=== PATIENT | male | born 1980 | race Hispanic/Latino ===

== ENCOUNTER 2019-05-25 15:22 | Emergency (ER) | payer BC ==
[2019-05-25 16:54] LABS: #Eosinphils 0.1 thou/uL (0.0-0.7); #Lymphocytes 1.2 thou/uL (1.20-3.40); #Monocytes 0.7 thou/uL (0.11-0.59); #Neutrophils 6.2 thou/uL (1.40-6.50); %Basophils 0.6 % (0.0-1.0); %Eosinophils 0.7 % (0.0-10.0); %Lymphocytes 14.3 % (21.0-51.0); %Monocytes 8.1 % (0.0-10.0); %Neutrophils 76.3 % (42.0-75.0); Hemoglobin 15.2 g/dL (14.0-18.0); Mean Corpuscular HGB CONC 34.3 g/dL (32.0-36.0); Mean Corpuscular Hemoglobin 33.3 pg (27.0-31.0); Mean Platelet Volume 6.8 fL (7.4-10.4); Platelet Count 228 thou/uL (130-400); RBC Distribution Width 10.9 % (11.5-14.5); Red Blood Cell (RBC) Count 4.58 mill/uL (4.70-6.10); White Blood Cell (WBC) Count 8.1 thou/uL (4.8-10.8)
[2019-05-25 17:16] LABS: ALT (SGPT) 59 U/L (8-55); AST (SGOT) 29 U/L (5-34); Albumin 4.5 g/dL (3.5-5.0); Alkaline Phosphatase 101 U/L (40-150); Anion Gap 12 mmol/L (10-20); BUN (Urea Nitrogen) 19 mg/dL (8.9-20.6); Bilirubin, Total 0.6 mg/dL (0.2-1.2); CK (CPK) 110 U/L (30-200); Calc. Creatinine Clearance 0 mL/min (70-130); Calcium 10.7 mg/dL (7.8-10.44); Carbon Dioxide 27 mmol/L (22-29); Chloride 101 mmol/L (98-107); Estimated GFR-MDRD Greater than 90; Globulin 3.3 g/dL (2.4-3.5); Glucose 91 mg/dL (70-105); Protein, Total 7.8 g/dL (6.0-8.3); Sodium 136 mmol/L (136-145)
[2019-05-25] MEDS ORDERED: Acetaminophen 500 MG TAB ONE (17:21)
== END 2019-05-25 18:02 | disposition home or self-care (01) ==
LOC: ERS 15:22
DX: R53.1 Weakness (principal); E11.9 Type 2 diabetes mellitus without complications; E78.5 Hyperlipidemia, unspecified; E78.00 Pure hypercholesterolemia, unspecified; I10 Essential (primary) hypertension; Z79.899 Other long term (current) drug therapy; Z79.84 Long term (current) use of oral hypoglycemic drugs
CPT/HCPCS: 80053; 82550; 85025; 87804; 96360

== ENCOUNTER 2019-06-15 01:05 | Emergency (ER) | payer BC ==
[2019-06-15 01:40] LABS: Bilirubin Negative (Negative); Blood, Urine 2+ (Negative); Clarity Clear (Clear); Glucose, Urine (Dipstick) Normal (Negative); Leukocyte Negative Leu/uL (Negative); Nitrite Negative (Negative); Protein, Urine (Dipstick) Negative (Neg-Trace); Squamous Epithelial None Seen HPF (0-3); Urobilinogen Normal mg/dL (Less than 2); WBC/HPF 0-3 HPF (0-3)
[2019-06-15 01:41] LABS: Bacteria/HPF 1+ HPF (None Seen)
[2019-06-15 02:18] LABS: #Basophils 0.1 thou/uL (0.0-0.2); #Eosinphils 0.1 thou/uL (0.0-0.7); #Monocytes 0.8 thou/uL (0.11-0.59); #Neutrophils 6.2 thou/uL (1.40-6.50); %Basophils 0.7 % (0.0-1.0); %Eosinophils 1.3 % (0.0-10.0); %Lymphocytes 29.6 % (21.0-51.0); %Monocytes 7.5 % (0.0-10.0); %Neutrophils 60.9 % (42.0-75.0); Hemoglobin 13.1 g/dL (14.0-18.0); Mean Corpuscular HGB CONC 34.5 g/dL (32.0-36.0); Mean Corpuscular Hemoglobin 32.9 pg (27.0-31.0); Mean Corpuscular Volume 95.4 fL (78.0-98.0); Mean Platelet Volume 6.7 fL (7.4-10.4); Platelet Count 250 thou/uL (130-400); RBC Distribution Width 10.9 % (11.5-14.5); Red Blood Cell (RBC) Count 3.99 mill/uL (4.70-6.10); White Blood Cell (WBC) Count 10.1 thou/uL (4.8-10.8)
[2019-06-15 02:33] LABS: ALT (SGPT) 53 U/L (8-55); AST (SGOT) 42 U/L (5-34); Albumin 4.1 g/dL (3.5-5.0); Alkaline Phosphatase 77 U/L (40-110); Anion Gap 13 mmol/L (10-20); BUN (Urea Nitrogen) 14 mg/dL (8.9-20.6); Bilirubin, Total 0.4 mg/dL (0.2-1.2); Calc. Creatinine Clearance 0 mL/min (70-130); Calcium 9.5 mg/dL (7.8-10.44); Carbon Dioxide 23 mmol/L (22-29); Chloride 104 mmol/L (98-107); Estimated GFR-MDRD Greater than 90; Globulin 3.5 g/dL (2.4-3.5); Glucose 88 mg/dL (70-105); Potassium 4.1 mmol/L (3.5-5.1); Protein, Total 7.6 g/dL (6.0-8.3); Sodium 136 mmol/L (136-145)
[2019-06-15] MEDS ORDERED: Ondansetron PF 4 MG/2 ML Vial ONE (02:38)
[2019-06-15] MEDS ORDERED: Fentanyl 100 MCG/2 ML VIAL ONE (02:38)
[2019-06-15 03:22] LABS: CK (CPK) 106 U/L (30-200)
--- NOTE | 2019-06-15 08:00 | CT ---
PRELIMINARY REPORT/[facility]/AFTER HOURS PROCEDURE PROCEDURE INFORMATION: Exam: CT Abdomen And Pelvis Without Contrast Exam date and time: 06/15/2019 2:20 AM Clinical history: 38 years old, male; Patient HX: 38 year old male presents to ED C/O blood in urine since 9pm tonight. 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 Hatch at [facility]. Reports surgery is scheduled for July 10. Patient denies fever, abdominal pain, n/v, urinary com plaints TECHNIQUE: Imaging protocol: Computed tomography of the abdomen and pelvis without contrast. COMPARISON: No relevant prior studies available. FINDINGS: Liver: No solid mass. Gallbladder and bile ducts: Gallbladder has been removed. Pancreas: No acute pathology. No ductal dilation. Spleen: No solid mass. No splenomegaly. Adrenals: No mass. Kidneys and ureters: Solid appearing, exophytic 3.7 x 3.3 x 4.0 cm left lower pole renal mass consist ent with known neoplasm. There are multiple, bilateral nonobstructing renal stones, largest in the left lower pole measuring 2 cm. Multifocal bilateral renal cortical scarring. 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 Stomach and bowel: No obstruction. No mucosal thickening. Appendix: No evidence of appendicitis. Intraperitoneal space: No free air. Vasculature: No abdominal aortic aneurysm. Lymph nodes: No enlarged lymph nodes. Bladder: Unremarkable as visualized. Reproductive: Unremarkable as visualized. Bones/joints: Chronic degenerative spinal changes without acute fracture or dislocation. Soft tissues: Unremarkable. IMPRESSION: Solid appearing, exophytic 3.7 x 3.3 x 4.0 cm left lower pole renal mass consistent with known neopla sm. Bilateral nonobstructing renal stones, largest in the left lower pole measuring 2 cm. 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 Thank you for allowing us to participate in the care of your patient. Dictated and Authenticated by: Alysia Millan MD 06/15/2019 2:57 AM Central Time ([place] & [place]) CT ABDOMEN AND PELVIS WITHOUT CONTRAST PERFORMED ON AN EMERGENCY BASIS 06/15/2019 0221 HOURS HISTORY: Hematuria. FINDINGS: I agree with the preliminary report by Dr. Millan from [facility]. Bilateral renal calculi are similar in appearance to the previous study. Mild distention of the left renal collecting system is stable. No ureteral calcifications are evident. Solid mass at the inferior pole left kidney is unchanged in appearance. Subtle curvilinear density along the posterior aspect of the urinary bladder may represent a ureterocele. CODE QA Transcribed Date/Time: 06/15/2019 9:25 AM
== END 2019-06-15 03:35 | disposition home or self-care (01) ==
LOC: ERS 01:05
DX: R31.9 Hematuria, unspecified (principal); E11.9 Type 2 diabetes mellitus without complications; E78.5 Hyperlipidemia, unspecified; E78.00 Pure hypercholesterolemia, unspecified; I10 Essential (primary) hypertension; Z79.84 Long term (current) use of oral hypoglycemic drugs; Z79.899 Other long term (current) drug therapy
CPT/HCPCS: 36415; 74176; 80053; 81003; 81015; 82550; 85025; 96374; 96375; J2405; J3010

== ENCOUNTER 2019-07-19 21:41 | Emergency (ER) | payer BC ==
[2019-07-19] MEDS ORDERED: Morphine 4 MG/ML VIAL ONE ×2 (22:06→23:03)
[2019-07-19] MEDS ORDERED: Ketorolac Tromethamine 30 MG/ML VIAL ONE (22:07)
[2019-07-19] MEDS ORDERED: Ondansetron PF 4 MG/2 ML Vial ONE (22:07)
--- NOTE | 2019-07-19 22:18 | RAD ---
PORTABLE CHEST ONE VIEW: 07/19/19 at 10:07 p.m. HISTORY: Chest pain. FINDINGS: The heart size is normal. The lungs are expanded without focal areas of consolidation, pneumothorace s or pleural effusions. IMPRESSION: No acute process. POS: [facility]
[2019-07-19 22:20] LABS: #Basophils 0.1 thou/uL (0.0-0.2); #Eosinphils 0.1 thou/uL (0.0-0.7); #Lymphocytes 2.6 thou/uL (1.20-3.40); #Monocytes 0.5 thou/uL (0.11-0.59); #Neutrophils 4.6 thou/uL (1.40-6.50); %Basophils 0.8 % (0.0-1.0); %Eosinophils 1.7 % (0.0-10.0); %Lymphocytes 32.5 % (21.0-51.0); %Monocytes 6.7 % (0.0-10.0); %Neutrophils 58.3 % (42.0-75.0); Hemoglobin 13.9 g/dL (14.0-18.0); Mean Corpuscular HGB CONC 34.9 g/dL (32.0-36.0); Mean Corpuscular Hemoglobin 32.3 pg (27.0-31.0); Mean Corpuscular Volume 92.7 fL (78.0-98.0); Mean Platelet Volume 6.5 fL (7.4-10.4); Platelet Count 276 thou/uL (130-400); RBC Distribution Width 11.2 % (11.5-14.5); Red Blood Cell (RBC) Count 4.31 mill/uL (4.70-6.10); White Blood Cell (WBC) Count 7.9 thou/uL (4.8-10.8)
--- NOTE | 2019-07-19 22:38 | CT ---
CT ABDOMEN AND PELVIS WITHOUT CONTRAST: 07/19/19 HISTORY: Abdominal pain. COMPARISON: 06/15/19. FINDINGS: Absence of oral and IV contrast study reduces the sensitivity of the exam, particularly for the evalu ation of solid organs and bowel. The lungs bases are clear. No free air or free fluid is seen in the abdomen or pelvis. The patient is post cholecystectomy. A normal appearing appendix is present. There is scarring in the kidneys on both sides. Bilateral renal calculi again seen with stable mild d istention of the left renal collecting system. No calculi is seen in the ureters or the urinary bladd er. Probable ureter is seen in the posterior aspect of the urinary bladder is again noted. A dilated distal ureter is stable. The solid appearing exophytic mass arising from the lower pole of the left kidney is stable. There are degenerative changes in the spine. IMPRESSION: Stable exam. POS: [facility]
[2019-07-19 22:41] LABS: ALT (SGPT) 40 U/L (8-55); AST (SGOT) 26 U/L (5-34); Albumin 4.3 g/dL (3.5-5.0); Alkaline Phosphatase 90 U/L (40-110); Anion Gap 11 mmol/L (10-20); BUN (Urea Nitrogen) 14 mg/dL (8.9-20.6); Bilirubin, Total 0.3 mg/dL (0.2-1.2); Calc. Creatinine Clearance 0 mL/min (70-130); Calcium 9.4 mg/dL (7.8-10.44); Carbon Dioxide 28 mmol/L (22-29); Chloride 104 mmol/L (98-107); Estimated GFR-MDRD Greater than 90; Globulin 2.9 g/dL (2.4-3.5); Glucose 99 mg/dL (70-105); Potassium 3.8 mmol/L (3.5-5.1); Protein, Total 7.2 g/dL (6.0-8.3); Sodium 139 mmol/L (136-145)
[2019-07-19 23:36] LABS: Bacteria/HPF None Seen HPF (None Seen); Bilirubin Negative (Negative); Blood, Urine 2+ (Negative); Clarity Clear (Clear); Glucose, Urine (Dipstick) Normal (Negative); Leukocyte 75 Leu/uL (Negative); Nitrite Negative (Negative); Protein, Urine (Dipstick) Negative (Neg-Trace); RBC/HPF 21-50 HPF (0-3); Squamous Epithelial None Seen HPF (0-3); Urobilinogen Normal mg/dL (Less than 2)
== END 2019-07-20 00:20 | disposition home or self-care (01) ==
LOC: ERS 21:41
DX: N12 Tubulo-interstitial nephritis, not specified as acute or chronic (principal); R10.9 Unspecified abdominal pain; G89.29 Other chronic pain; R11.0 Nausea; E11.9 Type 2 diabetes mellitus without complications; I10 Essential (primary) hypertension; Z79.84 Long term (current) use of oral hypoglycemic drugs; Z79.1 Long term (current) use of non-steroidal anti-inflammatories (NSAID); Z79.899 Other long term (current) drug therapy
CPT/HCPCS: 71045; 74176; 80053; 81003; 81015; 84484; 85025; 85379; 87086; 93005; 96361; 96374; 96375; 96376; J1885; J2270; J2405

== ENCOUNTER 2019-09-09 22:25 | Emergency (ER) | payer BC ==
[~2019-09-09 22:25] MED LIST: Iopamidol-370 76% 500 ML 1 ML ONE
[2019-09-09] MEDS ORDERED: Morphine 4 MG/ML VIAL ONE (23:11)
[2019-09-09 23:18] LABS: #Eosinphils 0.4 thou/uL (0.0-0.7); #Lymphocytes 2.7 thou/uL (1.20-3.40); #Monocytes 0.8 thou/uL (0.11-0.59); #Neutrophils 2.9 thou/uL (1.40-6.50); %Basophils 0.7 % (0.0-1.0); %Eosinophils 5.2 % (0.0-10.0); %Lymphocytes 39.8 % (21.0-51.0); %Monocytes 11.3 % (0.0-10.0); Hemoglobin 13.8 g/dL (14.0-18.0); Mean Corpuscular HGB CONC 34.6 g/dL (32.0-36.0); Mean Corpuscular Hemoglobin 31.6 pg (27.0-31.0); Mean Corpuscular Volume 91.1 fL (78.0-98.0); Mean Platelet Volume 6.6 fL (7.4-10.4); Platelet Count 272 thou/uL (130-400); RBC Distribution Width 11.5 % (11.5-14.5); Red Blood Cell (RBC) Count 4.36 mill/uL (4.70-6.10); White Blood Cell (WBC) Count 6.7 thou/uL (4.8-10.8)
[2019-09-09] MEDS ORDERED: Ondansetron PF 4 MG/2 ML Vial ONE (23:31)
[2019-09-09 23:42] LABS: ALT (SGPT) 58 U/L (8-55); AST (SGOT) 27 U/L (5-34); Albumin 4.1 g/dL (3.5-5.0); Alkaline Phosphatase 119 U/L (40-110); Anion Gap 13 mmol/L (10-20); BUN (Urea Nitrogen) 15 mg/dL (8.9-20.6); Bilirubin, Total 0.4 mg/dL (0.2-1.2); Calc. Creatinine Clearance 0 mL/min (70-130); Calcium 9.4 mg/dL (7.8-10.44); Carbon Dioxide 25 mmol/L (22-29); Chloride 104 mmol/L (98-107); Estimated GFR-MDRD Greater than 90; Globulin 3.3 g/dL (2.4-3.5); Glucose 190 mg/dL (70-105); Lipase 40 U/L (8-78); Potassium 4.2 mmol/L (3.5-5.1); Protein, Total 7.4 g/dL (6.0-8.3); Sodium 138 mmol/L (136-145)
--- NOTE | 2019-09-10 08:22 | CT ---
CT ABDOMEN AND PELVIS WITH IV CONTRAST: Date: 09/09/2019 HISTORY: Left flank pain after mechanical fall this morning. Patient states also fell on right side while [place]. Acute worsening left flank pain. COMPARISON: Nonenhanced CT abdomen and pelvis on 07/19/2019. FINDINGS: The lung bases are clear. No pleural effusion or pneumothorax is seen at either lung base. Post cholecystectomy changes are noted. The liver, spleen, pancreas, bilateral adrenal glands, abdominal aorta, and urinary bladder demonstra te a normal CT appearance. There have been interval postsurgical changes involving the left kidney, and the previously noted inc reased density mass inferior pole left kidney is no longer visualized, which may be related to interv al postsurgical changes. There is mild stranding seen in the region of the postsurgical changes and i nvolving the subcutaneous soft tissues with small defect within the abdominal oblique musculature rel ated to postsurgical changes. No hemorrhage or fluid collection is seen in this region. There is a stable area of scarring in the superior pole left kidney with mild distention of the left renal collecting system, which is an overall stable finding to mildly improve from the prior exam. There are cortically based calcifications and scarring involving the right kidney. No hydronephrosis is present on the right. 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 Right ureter is not d ilated and no ureteral calculi are seen bilaterally. The appendix is visualized and normal in caliber. There are ill-defined rounded areas of mild increased density in the subcutaneous adipose soft tissue s of the abdomen bilaterally, which may be secondary to areas of injection. Clinical correlation is r ecommended. There is a linear area of increased density seen in the subcutaneous soft tissues at the level of the left iliac crest, which may also be site of prior postsurgical change. No free fluid, fluid collection, or lymphadenopathy seen in the abdomen or pelvis. Degenerative changes are seen in the visualized lower thoracic spine, as well as the lower lumbar spi ne. IMPRESSION: 1. Postsurgical changes involving the left kidney related to surgical excision of the previously not ed increased density inferior pole left renal mass. The previously seen calcifications in the inferio r pole of the left kidney are also no longer visualized. 2. Stable mild hydronephrosis left kidney, similar to prior study, with evidence of a duplicated lef t renal collecting system and stable dilatation of the distal upper pole moiety right ureter. 3. Scarring involving the kidneys bilaterally, greater on the left. Cortically based calcifications are seen involving the right kidney. 4. There is inflammatory stranding in the region of postsurgical change involving the left kidney, b ut there is no fluid collection or findings to suggest hemorrhage. 5. Post cholecystectomy changes. 6. Rounded areas of increased density in the adipose tissues anterior abdomen which may be related t o sites of injection. Clinical correlation is suggested. 7. No acute findings in the abdomen or pelvis. POS: [facility]
== END 2019-09-10 00:59 | disposition home or self-care (01) ==
LOC: ERS 22:25
DX: R10.9 Unspecified abdominal pain (principal); E11.9 Type 2 diabetes mellitus without complications; E78.5 Hyperlipidemia, unspecified; E78.00 Pure hypercholesterolemia, unspecified; I10 Essential (primary) hypertension; Z79.84 Long term (current) use of oral hypoglycemic drugs; Z79.899 Other long term (current) drug therapy; W18.30XA Fall on same level, unspecified, initial encounter
CPT/HCPCS: 74177; 80053; 83690; 85025; 96374; 96375; J2270; J2405; Q9967

== ENCOUNTER 2019-11-12 09:56 | Emergency (ER) | payer BC ==
[2019-11-12 10:34] LABS: #Eosinphils 0.1 thou/uL (0.0-0.7); #Lymphocytes 2.3 thou/uL (1.20-3.40); #Monocytes 0.6 thou/uL (0.11-0.59); #Neutrophils 2.2 thou/uL (1.40-6.50); %Basophils 0.7 % (0.0-1.0); %Eosinophils 2.7 % (0.0-10.0); %Lymphocytes 43.7 % (21.0-51.0); Hemoglobin 14.7 g/dL (14.0-18.0); Mean Corpuscular Hemoglobin 32.5 pg (27.0-31.0); Mean Corpuscular Volume 92.9 fL (78.0-98.0); Mean Platelet Volume 6.8 fL (7.4-10.4); Platelet Count 276 thou/uL (130-400); RBC Distribution Width 11.4 % (11.5-14.5); Red Blood Cell (RBC) Count 4.53 mill/uL (4.70-6.10); White Blood Cell (WBC) Count 5.2 thou/uL (4.8-10.8)
[2019-11-12 10:59] LABS: ALT (SGPT) 44 U/L (8-55); AST (SGOT) 31 U/L (5-34); Albumin 4.3 g/dL (3.5-5.0); Alkaline Phosphatase 94 U/L (40-110); Anion Gap 9 mmol/L (10-20); BUN (Urea Nitrogen) 16 mg/dL (8.9-20.6); Bilirubin, Total 0.5 mg/dL (0.2-1.2); Calc. Creatinine Clearance 0 mL/min (70-130); Calcium 9.5 mg/dL (7.8-10.44); Carbon Dioxide 29 mmol/L (22-29); Chloride 104 mmol/L (98-107); Estimated GFR-MDRD Greater than 90; Globulin 2.9 g/dL (2.4-3.5); Glucose 118 mg/dL (70-105); Potassium 4.2 mmol/L (3.5-5.1); Protein, Total 7.2 g/dL (6.0-8.3); Sodium 138 mmol/L (136-145)
[2019-11-12 12:25] LABS: Bilirubin Negative (Negative); Blood, Urine Negative (Negative); Clarity Clear (Clear); Glucose, Urine (Dipstick) Normal (Negative); Leukocyte Negative Leu/uL (Negative); Nitrite Negative (Negative); Protein, Urine (Dipstick) 10 mg/dL (Neg-Trace); Urobilinogen Normal mg/dL (Less than 2)
--- NOTE | 2019-11-12 13:02 | CT ---
EXAM: Abdomen and pelvic CT scan with contrast: HISTORY: Left-sided flank discomfort swelling prior renal surgery COMPARISON: 09/09/2019 FINDINGS: The visualized lung bases are clear. Liver: Evidence for some fatty changes in the liver, stable. Gallbladder:Status post cholecystectomy. No ductal dilatation. Pancreas:Unremarkable Spleen:Unremarkable. Adrenal glands:Unremarkable. Kidneys:Postoperative changes right kidney with some associated calcifications or suture opacities. Scarring and considerable cortical volume loss of the left kidney with some dilatation of calyces. No nobstructing left renal calculi. Duplicated left upper collecting system without evidence for acute obstruction. No solid or cystic renal mass. No evidence for bowel obstruction. Aorta:No evidence for aortic aneurysm. Spine:No significant acute process. No CT evidence for acute appendicitis. The urinary bladder is unremarkable. Reproductive system:Unremarkable No abscess, adenopathy, or abnormal fluid collection within the abdomen or pelvis. Small focus of retroperitoneal fat herniation at the site of prior left retroperitoneal surgery, more prominent than on prior study. IMPRESSION: Overall stable appearance of the abdomen and pelvis. Postoperative changes of the right kidney. Consi derable scarring and cortical volume loss on the left side with 2 small renal calculi, nonobstructing. Small but slightly more prominent left retroperitoneal fat-containing hernia at the s ite of prior left retroperitoneal surgery
[2019-11-12] MEDS ORDERED: Iopamidol-370 76% 500 ML 1 ML ONE (15:21)
== END 2019-11-12 14:26 | disposition home or self-care (01) ==
LOC: ERS 09:56
DX: K45.8 Other specified abdominal hernia without obstruction or gangrene (principal); E11.9 Type 2 diabetes mellitus without complications; E78.00 Pure hypercholesterolemia, unspecified; I10 Essential (primary) hypertension; Z79.899 Other long term (current) drug therapy; Z79.84 Long term (current) use of oral hypoglycemic drugs; Z87.442 Personal history of urinary calculi
CPT/HCPCS: 74177; 80053; 81003; 85025; Q9967

== ENCOUNTER 2019-11-19 07:22 | Emergency (ER) | payer BC ==
[2019-11-19] MEDS ORDERED: Ibuprofen 800 MG TAB ONE (08:43)
== END 2019-11-19 10:00 | disposition home or self-care (01) ==
LOC: ERS 07:22
DX: J06.9 Acute upper respiratory infection, unspecified (principal); E11.9 Type 2 diabetes mellitus without complications; E78.00 Pure hypercholesterolemia, unspecified; I10 Essential (primary) hypertension; Z79.84 Long term (current) use of oral hypoglycemic drugs
CPT/HCPCS: 87804; 99283

== ENCOUNTER 2020-03-03 14:10 | Outpatient (CLI) | payer BC ==
--- NOTE | 2020-03-03 14:27 | RAD ---
XR Chest Pa Lat STANDARD HISTORY: Other viral pneumonia. Shortness of breath COMPARISON: None FINDINGS: The heart size is normal. The lungs are well expanded without focal areas of consolidation, pneumothorax or pleural effusions. There are degenerative changes in the spine. IMPRESSION: No radiographic evidence of acute cardiopulmonary process.
== END 2020-03-03 14:11 | disposition home or self-care (01) ==
LOC: BICRAD 14:10
PROVIDERS: ATTEND Family Medicine
DX: J12.89 Other viral pneumonia (principal)
CPT/HCPCS: 71046

== ENCOUNTER 2020-05-22 23:21 | Emergency (ER) | payer BC ==
[2020-05-23 00:54] LABS: #Basophils 0.1 thou/uL (0.0-0.2); #Eosinphils 0.2 thou/uL (0.0-0.7); #Lymphocytes 3.2 thou/uL (1.20-3.40); #Monocytes 0.6 thou/uL (0.11-0.59); #Neutrophils 2.6 thou/uL (1.40-6.50); %Basophils 1.1 % (0.0-1.0); %Eosinophils 2.7 % (0.0-10.0); %Lymphocytes 48.4 % (21.0-51.0); %Monocytes 8.7 % (0.0-10.0); %Neutrophils 39.2 % (42.0-75.0); Mean Corpuscular HGB CONC 36.5 g/dL (32.0-36.0); Mean Corpuscular Hemoglobin 33.9 pg (27.0-31.0); Mean Corpuscular Volume 92.7 fL (78.0-98.0); Mean Platelet Volume 7.3 fL (7.4-10.4); Platelet Count 236 thou/uL (130-400); RBC Distribution Width 11.3 % (11.5-14.5); Red Blood Cell (RBC) Count 4.42 mill/uL (4.70-6.10); White Blood Cell (WBC) Count 6.6 thou/uL (4.8-10.8)
[2020-05-23 00:59] LABS: ALT (SGPT) 86 U/L (8-55); AST (SGOT) 43 U/L (5-34); Alkaline Phosphatase 144 U/L (40-110); Anion Gap 19 mmol/L (10-20); BUN (Urea Nitrogen) 18 mg/dL (8.9-20.6); Bilirubin, Total 0.4 mg/dL (0.2-1.2); Calc. Creatinine Clearance 0 mL/min (70-130); Calcium 9.3 mg/dL (7.8-10.44); Carbon Dioxide 17 mmol/L (22-29); Chloride 105 mmol/L (98-107); Estimated GFR-MDRD Greater than 90; Globulin 4.1 g/dL (2.4-3.5); Glucose 165 mg/dL (70-105); Lipase 48 U/L (8-78); Potassium 4.4 mmol/L (3.5-5.1); Protein, Total 8.1 g/dL (6.0-8.3); Sodium 137 mmol/L (136-145)
== END 2020-05-23 00:54 | disposition home or self-care (01) ==
LOC: ERS 23:21
DX: R07.9 Chest pain, unspecified (principal); E11.9 Type 2 diabetes mellitus without complications; E78.00 Pure hypercholesterolemia, unspecified; I10 Essential (primary) hypertension; Z79.899 Other long term (current) drug therapy; Z79.84 Long term (current) use of oral hypoglycemic drugs
CPT/HCPCS: 36415; 80053; 83690; 83880; 84484; 85025; 85379; 93005

== ENCOUNTER 2020-10-20 21:44 | Emergency (ER) | payer BC ==
--- NOTE | 2020-10-20 22:19 | RAD ---
Chest one view HISTORY: Chest pain. COMPARISON: 03/03/2020. FINDINGS: Cardiac silhouette is magnified by projection. Pulmonary vasculature is unremarkable. Mediastinum is midline. No airspace consolidation or evidence of pneumothorax. IMPRESSION : No abnormalities are demonstrated.
[2020-10-21 13:01] LABS: SARS-CoV-2 PCR by NAA Not Detected (NotDetected)
--- NOTE | 2020-10-23 14:27 | EKG ---
Test Reason : Blood Pressure : / mmHG Vent. Rate : 092 BPM Atrial Rate : 092 BPM P-R Int : 142 ms QRS Dur : 072 ms QT Int : 340 ms P-R-T Axes : 030 048 040 degrees QTc Int : 420 ms Normal sinus rhythm Normal ECG Baseline Artifact Present Confirmed by CARLOS SCHULTZ DO ([id number]), editor dictionary SILVIA HORVATH ([id number]) on 10/23/2020 2:27:00 PM Referred By: Confirmed By:CAROLS SCHULTZ DO
== END 2020-10-20 23:54 | disposition home or self-care (01) ==
LOC: ERS 21:44
DX: R06.02 Shortness of breath (principal); R53.1 Weakness; Z20.822 Contact with and (suspected) exposure to COVID-19; I10 Essential (primary) hypertension; E11.9 Type 2 diabetes mellitus without complications; E78.00 Pure hypercholesterolemia, unspecified; Z79.84 Long term (current) use of oral hypoglycemic drugs
CPT/HCPCS: 71045; 87635; 93005; U0003; U0005

== ENCOUNTER 2021-11-06 19:18 | Emergency (ER) | payer BC ==
[2021-11-06 20:55] LABS: SARS-CoV-2 NAA Rapid Test Not Detected (NotDetected)
== END 2021-11-06 21:26 | disposition home or self-care (01) ==
LOC: ERS 19:18
DX: J10.1 Influenza due to other identified influenza virus with other respiratory manifestations (principal); E11.9 Type 2 diabetes mellitus without complications; E78.00 Pure hypercholesterolemia, unspecified; I10 Essential (primary) hypertension; Z79.84 Long term (current) use of oral hypoglycemic drugs
CPT/HCPCS: 0240U; 71045; 93005

== ENCOUNTER 2022-09-03 18:39 | Emergency (ER) | payer BC ==
[2022-09-03] MEDS ORDERED: Ketorolac Tromethamine 30 MG/ML VIAL ONE (18:56)
== END 2022-09-03 19:35 | disposition home or self-care (01) ==
LOC: ERS 18:39
DX: S93.402A Sprain of unspecified ligament of left ankle, initial encounter (principal); E78.2 Mixed hyperlipidemia; E11.9 Type 2 diabetes mellitus without complications; I10 Essential (primary) hypertension; X50.1XXA Overexertion from prolonged static or awkward postures, initial encounter
CPT/HCPCS: 96372; J1885

== ENCOUNTER 2022-09-25 20:19 | Emergency (ER) | payer BC | END 2022-09-25 23:40 | disposition home or self-care (01) | LOC: ERS 20:19 | DX: H66.93 Otitis media, unspecified, bilateral (principal); J06.9 Acute upper respiratory infection, unspecified; E78.2 Mixed hyperlipidemia; E11.9 Type 2 diabetes mellitus without complications; I10 Essential (primary) hypertension | CPT/HCPCS: 99282 ==

== ENCOUNTER 2022-10-22 23:04 | Emergency (ER) | payer BC ==
[2022-10-23 00:01] LABS: Band 2 % (5-11); Eosinophils 4 % (0-10); Hypochromia SLIGHT = 6-15 cells (100X) (0-5/hpf); Lymphocytes 41 % (21-51); MDiff Complete? YES; Mean Corpuscular Hemoglobin 35.9 pg (27.0-31.0); Mean Corpuscular Volume 97.1 fl (78.0-98.0); Mean Platelet Volume 7.7 fL (7.4-10.4); Monocytes 4 % (0-10); Neutrophil 48 % (42-75); Platelet Count 179 10x3/uL (130-400); Platelet Morphology Comment Appears Adequate; RBC Distribution Width 11.3 % (11.5-14.5); Reactive Lymphocytes 1 % (0-10); Red Blood Cell (RBC) Count 4.45 mill/uL (4.70-6.10); White Blood Cell (WBC) Count 5.3 10x3/uL (4.8-10.8)
[2022-10-23 00:04] LABS: ALT (SGPT) 118 U/L (8-55); AST (SGOT) 63 U/L (5-34); Albumin 4.2 g/dL (3.5-5.0); Alkaline Phosphatase 135 U/L (40-110); Anion Gap 14 mmol/L (10-20); BUN (Urea Nitrogen) 17 mg/dL (8.9-20.6); Bilirubin, Total 0.9 mg/dL (0.2-1.2); Calc. Creatinine Clearance 0 mL/min (70-130); Calcium 9.9 mg/dL (7.8-10.44); Carbon Dioxide 20 mmol/L (22-29); Chloride 104 mmol/L (98-107); Estimated GFR 82; Globulin 4.5 g/dL (2.4-3.5); Glucose 276 mg/dL (70-105); Lipase 59 U/L (8-78); Potassium 4.2 mmol/L (3.5-5.1); Protein, Total 8.7 g/dL (6.0-8.3); Sodium 134 mmol/L (136-145)
[2022-10-23] MEDS ORDERED: Ketorolac Tromethamine 30 MG/ML VIAL ONE (00:23)
== END 2022-10-23 02:20 | disposition home or self-care (01) ==
LOC: ERS 23:04
DX: R07.9 Chest pain, unspecified (principal); E11.65 Type 2 diabetes mellitus with hyperglycemia; I10 Essential (primary) hypertension; E78.2 Mixed hyperlipidemia
CPT/HCPCS: 71045; 80053; 82550; 83690; 84484; 85025; 93005; 96361; 96374; J1885

== ENCOUNTER 2022-11-05 14:17 | Emergency (ER) | payer BC | END 2022-11-05 17:37 | disposition left against medical advice (07) | LOC: ERS 14:17 | DX: Z53.21 Procedure and treatment not carried out due to patient leaving prior to being seen by health care provider (principal) ==

== ENCOUNTER 2022-11-05 21:04 | Emergency (ER) | payer BC | END 2022-11-05 22:42 | disposition left against medical advice (07) | LOC: ERS 21:04 | DX: Z53.21 Procedure and treatment not carried out due to patient leaving prior to being seen by health care provider (principal) ==

== ENCOUNTER 2022-12-16 08:33 | Emergency (ER) | payer BC ==
[2022-12-16] MEDS ORDERED: Morphine 4 MG/ML VIAL ONE ×2 (09:14→11:03)
[2022-12-16] MEDS ORDERED: Ondansetron PF 4 MG/2 ML Vial ONE ×2 (09:14→10:57)
[2022-12-16 09:56] LABS: #Basophils 0.1 thou/uL (0.0-0.2); #Eosinphils 0.1 thou/uL (0.0-0.7); #Lymphocytes 2.7 thou/uL (1.20-3.40); #Monocytes 0.6 thou/uL (0.11-0.59); #Neutrophils 4.9 thou/uL (1.40-6.50); %Basophils 0.7 % (0.0-1.0); %Eosinophils 1.7 % (0.0-10.0); %Lymphocytes 31.6 % (21.0-51.0); %Monocytes 7.6 % (0.0-10.0); %Neutrophils 58.4 % (42.0-75.0); Hemoglobin 18.4 g/dL (14.0-18.0); Mean Corpuscular HGB CONC 39.8 g/dL (32.0-36.0); Mean Corpuscular Hemoglobin 37.4 pg (27.0-31.0); Mean Platelet Volume 8.2 fL (7.4-10.4); Platelet Count 203 10x3/uL (130-400); RBC Distribution Width 11.2 % (11.5-14.5); Red Blood Cell (RBC) Count 4.91 mill/uL (4.70-6.10); White Blood Cell (WBC) Count 8.5 10x3/uL (4.8-10.8)
[2022-12-16] MEDS ORDERED: fentaNYL 50 mcg/mL 1 mL Vial ONE (10:29)
[2022-12-16 10:42] LABS: Bilirubin Negative (Negative); Blood, Urine Negative (Negative); Clarity Clear (Clear); Glucose, Urine (Dipstick) Greater than 1000 mg/dL (Negative); Ketone, Urine 150 mg/dL (Negative); Leukocyte Negative Leu/uL (Negative); Nitrite Negative (Negative); Protein, Urine (Dipstick) 20 mg/dL (Neg-Trace); Specific Gravity, Urine 1.035 (1.002-1.036); Urobilinogen Normal mg/dL (Less than 2); pH, Urine 5.5 (5.0-9.0)
[2022-12-16 10:53] LABS: Lipase 169 U/L (8-78)
[2022-12-16 10:54] LABS: ALT (SGPT) 82 U/L (8-55); Albumin 4.6 g/dL (3.5-5.0); Calc. Creatinine Clearance 0 mL/min (70-130); Calcium 10.1 mg/dL (7.8-10.44); Estimated GFR 114; Glucose 234 mg/dL (70-105)
[2022-12-16 10:55] LABS: BUN (Urea Nitrogen) 10 mg/dL (8.9-20.6); Chloride 99 mmol/L (98-107); Potassium 4.5 mmol/L (3.5-5.1); Sodium 132 mmol/L (136-145)
[2022-12-16 11:21] LABS: Protein, Total 8.6 g/dL (6.0-8.3)
[2022-12-16 11:23] LABS: Alkaline Phosphatase 130 U/L (40-110)
[2022-12-16 11:26] LABS: AST (SGOT) 48 U/L (5-34)
[2022-12-16 11:32] LABS: Carbon Dioxide 16 mmol/L (22-29)
[2022-12-16 11:33] LABS: Anion Gap 22 mmol/L (10-20)
[2022-12-16] MEDS ORDERED: Iopamidol-370 76% 500 ML MDV (1 ML CHARGE) ONE (12:30)
== END 2022-12-16 12:11 | disposition home or self-care (01) ==
LOC: ERS 08:33
DX: K85.90 Acute pancreatitis without necrosis or infection, unspecified (principal); E11.9 Type 2 diabetes mellitus without complications; Z79.899 Other long term (current) drug therapy; Z79.4 Long term (current) use of insulin
CPT/HCPCS: 36415; 71045; 74177; 80053; 81003; 83605; 83690; 84484; 85025; 87040; 87149; 93005; J2270; J2405; J3010

== ENCOUNTER 2022-12-16 22:41 | Inpatient (IN) | payer BC ==
[~2022-12-16 22:41] MED LIST changes: -Iopamidol-370 76% 500 ML 1 ML ONE; +Iopamidol-370 76% 500 ML MDV (1 ML CHARGE) ONE
[2022-12-16] MEDS ORDERED: Morphine 4 MG/ML VIAL ONE ×2 (23:53→23:54)
[2022-12-16] MEDS ORDERED: Ondansetron PF 4 MG/2 ML Vial ONE (23:53)
[2022-12-17] LABS: Actual Bicarbonate (HCO3v) 22 mEq/L (22-28); Base Excess -1.1 mEq/L (-2.0 to +3.0); Calcium, Ionized (venous) 1.04 mmol/L (1.16-1.32); Chloride (VBG) 99 mmol/L (98-106); Hemoglobin (Hb) 15.5 g/dL (13.2-17.3); Potassium (VBG) 5.73 mmol/L (3.70-5.30); Sodium 131.1 mmol/L (133-146); pH (venous) 7.46 (7.32-7.43)
[2022-12-17] MEDS ORDERED: fentaNYL 50 mcg/mL 1 mL Vial ONE (00:25)
[2022-12-17 00:28] LABS: #Basophils 0.1 thou/uL (0.0-0.2); #Eosinphils 0.2 thou/uL (0.0-0.7); #Lymphocytes 2.4 thou/uL (1.20-3.40); #Monocytes 0.7 thou/uL (0.11-0.59); #Neutrophils 5.5 thou/uL (1.40-6.50); %Basophils 0.8 % (0.0-1.0); %Eosinophils 2.7 % (0.0-10.0); %Lymphocytes 27.2 % (21.0-51.0); %Monocytes 7.8 % (0.0-10.0); %Neutrophils 61.5 % (42.0-75.0); Hemoglobin 16.3 g/dL (14.0-18.0); Mean Corpuscular HGB CONC 38.1 g/dL (32.0-36.0); Mean Corpuscular Hemoglobin 36.5 pg (27.0-31.0); Mean Corpuscular Volume 95.9 fl (78.0-98.0); Mean Platelet Volume 8.7 fL (7.4-10.4); Platelet Count 166 10x3/uL (130-400); RBC Distribution Width 11.1 % (11.5-14.5); Red Blood Cell (RBC) Count 4.45 mill/uL (4.70-6.10); White Blood Cell (WBC) Count 8.9 10x3/uL (4.8-10.8)
[2022-12-17 00:49] LABS: Calc. Creatinine Clearance 0 mL/min (70-130); Estimated GFR 71
[2022-12-17 00:53] LABS: Alkaline Phosphatase 111 U/L (40-110); Anion Gap 17 mmol/L (10-20); BUN (Urea Nitrogen) 21 mg/dL (8.9-20.6); Bilirubin, Total 0.7 mg/dL (0.2-1.2); Calcium 9.3 mg/dL (7.8-10.44); Carbon Dioxide 19 mmol/L (22-29); Chloride 99 mmol/L (98-107); Globulin 5.4 g/dL (2.4-3.5); Glucose 323 mg/dL (70-105); Lipase 139 U/L (8-78); Magnesium 1.9 mg/dL (1.6-2.6); Potassium 5.5 mmol/L (3.5-5.1); Protein, Total 9.4 g/dL (6.0-8.3); Sodium 129 mmol/L (136-145)
[2022-12-17 01:03] LABS: ALT (SGPT) 82 U/L (8-55); AST (SGOT) 51 U/L (5-34)
[2022-12-17] MEDS ORDERED: Morphine 4 MG/ML VIAL SLOW IVP PRN (04:01)
[2022-12-17] MEDS ORDERED: Acetaminophen 325 MG TAB PO PRN (04:15)
[2022-12-17] MEDS ORDERED: Ondansetron ODT 4 MG TAB SL PRN (04:15)
[2022-12-17] MEDS ORDERED: Ondansetron PF 4 MG/2 ML Vial IVP PRN (04:15)
[2022-12-17 04:47] VITALS: BMI 38.7
[2022-12-17] MEDS: Sodium Chloride 0.9% 1,000 ML IV SCH ×4 (05:51→21:37)
[2022-12-17] MEDS ORDERED: Dextrose 50% Abboject 50 ML SYRINGE SLOW IVP PRN (06:59)
[2022-12-17] MEDS ORDERED: HumaLOG 300 UNITS/3 ML VIAL SC PRN (06:59)
[2022-12-17] MEDS ORDERED: Dextrose 5% in Water 1,000 ML IV PRN (06:59)
[2022-12-17] MEDS ORDERED: Calcium Carbonate 500 MG ChewTAB PO PRN (08:01)
[2022-12-17] MEDS ORDERED: Senokot S 8.6-50 MG TAB PO PRN (08:01)
[2022-12-17] MEDS ORDERED: HYDROmorphone 0.5 MG/0.5 ML SYRINGE SLOW IVP SCH (08:15)
[2022-12-17] MEDS: Famotidine/PF 20 mg/2ml Vial SLOW IVP SCH ×2 (08:50→19:30)
[2022-12-17] MEDS: HumaLOG 300 UNITS/3 ML VIAL SC PRN ×3 (08:56→16:40)
[2022-12-17 09:21] LABS: ALT (SGPT) 79 U/L (8-55); AST (SGOT) 53 U/L (5-34); Albumin 3.6 g/dL (3.5-5.0); Alkaline Phosphatase 90 U/L (40-110); Anion Gap 19 mmol/L (10-20); BUN (Urea Nitrogen) 13 mg/dL (8.9-20.6); Bilirubin, Total 0.7 mg/dL (0.2-1.2); Calc. Creatinine Clearance 170 mL/min (70-130); Calcium 8.5 mg/dL (7.8-10.44); Carbon Dioxide 16 mmol/L (22-29); Chloride 103 mmol/L (98-107); Estimated GFR 111; Globulin 4.1 g/dL (2.4-3.5); Glucose 233 mg/dL (70-105); Lipase 118 U/L (8-78); Potassium 4.9 mmol/L (3.5-5.1); Protein, Total 7.7 g/dL (6.0-8.3); Sodium 133 mmol/L (136-145)
[2022-12-17] MEDS: Morphine 4 MG/ML VIAL SLOW IVP PRN ×4 (12:58→22:42)
[2022-12-17] MEDS: Acetaminophen 325 MG TAB PO PRN ×2 (14:43→22:42)
[2022-12-17] MEDS: Ondansetron PF 4 MG/2 ML Vial IVP PRN (18:32)
[2022-12-17 19:19] LABS: Anion Gap 16 mmol/L (10-20); BUN (Urea Nitrogen) 8 mg/dL (8.9-20.6); Calc. Creatinine Clearance 199 mL/min (70-130); Calcium 8.4 mg/dL (7.8-10.44); Carbon Dioxide 17 mmol/L (22-29); Chloride 105 mmol/L (98-107); Estimated GFR 117; Glucose 148 mg/dL (70-105); Potassium 4.4 mmol/L (3.5-5.1); Sodium 134 mmol/L (136-145)
[2022-12-18] MEDS: Sodium Chloride 0.9% 1,000 ML IV SCH ×6 (01:22→20:09)
[2022-12-18] MEDS: Ondansetron PF 4 MG/2 ML Vial IVP PRN ×3 (05:58→17:24)
[2022-12-18] MEDS: Morphine 4 MG/ML VIAL SLOW IVP PRN ×5 (05:58→21:30)
[2022-12-18 06:08] LABS: #Eosinphils 0.2 thou/uL (0.0-0.7); #Lymphocytes 1.9 thou/uL (1.20-3.40); #Monocytes 0.5 thou/uL (0.11-0.59); #Neutrophils 2.9 thou/uL (1.40-6.50); %Basophils 0.8 % (0.0-1.0); %Eosinophils 3.8 % (0.0-10.0); %Lymphocytes 34.3 % (21.0-51.0); %Monocytes 8.5 % (0.0-10.0); %Neutrophils 52.7 % (42.0-75.0); Hemoglobin 13.8 g/dL (14.0-18.0); Mean Corpuscular HGB CONC 35.8 g/dL (32.0-36.0); Mean Corpuscular Hemoglobin 34.9 pg (27.0-31.0); Mean Corpuscular Volume 97.3 fl (78.0-98.0); Mean Platelet Volume 7.7 fL (7.4-10.4); Platelet Count 135 10x3/uL (130-400); RBC Distribution Width 10.9 % (11.5-14.5); Red Blood Cell (RBC) Count 3.96 mill/uL (4.70-6.10); White Blood Cell (WBC) Count 5.5 10x3/uL (4.8-10.8)
[2022-12-18 06:15] LABS: Hemoglobin A1c 9.4 % (4.0-6.0)
[2022-12-18 06:35] LABS: ALT (SGPT) 80 U/L (8-55); AST (SGOT) 43 U/L (5-34); Albumin 3.2 g/dL (3.5-5.0); Alkaline Phosphatase 70 U/L (40-110); Anion Gap 13 mmol/L (10-20); BUN (Urea Nitrogen) 9 mg/dL (8.9-20.6); Bilirubin, Total 0.6 mg/dL (0.2-1.2); CRP (Inflammatory) 1.54 mg/dL (= or < 0.5); Calc. Creatinine Clearance 194 mL/min (70-130); Calcium 8.2 mg/dL (7.8-10.44); Carbon Dioxide 19 mmol/L (22-29); Chloride 106 mmol/L (98-107); Estimated GFR 116; Glucose 172 mg/dL (70-105); Lipase 94 U/L (8-78); Magnesium 1.7 mg/dL (1.6-2.6); Potassium 4.2 mmol/L (3.5-5.1); Protein, Total 6.2 g/dL (6.0-8.3); Sodium 134 mmol/L (136-145)
[2022-12-18] MEDS: Famotidine/PF 20 mg/2ml Vial SLOW IVP SCH ×2 (08:47→20:09)
[2022-12-18] MEDS: Acetaminophen 325 MG TAB PO PRN (08:56)
[2022-12-18] MEDS: Metoclopramide HCl 10 MG/2 ML VIAL IVP PRN (21:39)
[2022-12-19] MEDS: Acetaminophen 325 MG TAB PO PRN (02:52)
[2022-12-19] MEDS: Ondansetron PF 4 MG/2 ML Vial IVP PRN ×2 (02:53→16:51)
[2022-12-19] MEDS: Morphine 4 MG/ML VIAL SLOW IVP PRN ×5 (02:53→20:59)
[2022-12-19] MEDS: Sodium Chloride 0.9% 1,000 ML IV SCH ×3 (02:55→14:25)
[2022-12-19] MEDS: Famotidine/PF 20 mg/2ml Vial SLOW IVP SCH ×2 (08:01→20:58)
[2022-12-19] MEDS: Metoclopramide HCl 10 MG/2 ML VIAL IVP PRN (20:58)
[2022-12-20] MEDS: Sodium Chloride 0.9% 1,000 ML IV SCH ×2 (00:09→10:32)
[2022-12-20] MEDS: Morphine 4 MG/ML VIAL SLOW IVP PRN ×3 (04:34→22:40)
[2022-12-20] MEDS: Ondansetron PF 4 MG/2 ML Vial IVP PRN (04:34)
[2022-12-20] MEDS: Famotidine/PF 20 mg/2ml Vial SLOW IVP SCH ×2 (08:54→20:56)
[2022-12-20] MEDS: Gemfibrozil 600 MG TAB PO SCH ×2 (08:54→16:47)
[2022-12-20] MEDS: Acetaminophen 325 MG TAB PO PRN (16:47)
[2022-12-20] MEDS: HumaLOG 300 UNITS/3 ML VIAL SC PRN (16:48)
[2022-12-20 23:52] VITALS: TEMP 97.7
[2022-12-21] MEDS: Acetaminophen 325 MG TAB PO PRN (03:26)
[2022-12-21 08:51] VITALS: BP 132/69
[2022-12-21] MEDS: Famotidine/PF 20 mg/2ml Vial SLOW IVP SCH (09:37)
[2022-12-21] MEDS: Gemfibrozil 600 MG TAB PO SCH (09:37)
== END 2022-12-21 13:45 | disposition home or self-care (01) | DRG 439 ==
LOC: ERS 22:41 → SURG A 12-17 03:04
PROVIDERS: ADMIT Internal Medicine; ATTEND Hospitalist
DX: K85.90 Acute pancreatitis without necrosis or infection, unspecified (principal); E87.1 Hypo-osmolality and hyponatremia; N17.9 Acute kidney failure, unspecified; E87.6 Hypokalemia; E11.65 Type 2 diabetes mellitus with hyperglycemia; E86.0 Dehydration; E78.1 Pure hyperglyceridemia; E66.9 Obesity, unspecified; Z79.4 Long term (current) use of insulin; Z79.899 Other long term (current) drug therapy; Z79.84 Long term (current) use of oral hypoglycemic drugs; Z68.38 Body mass index [BMI] 38.0-38.9, adult
CPT/HCPCS: 36415; 36416; 71045; 74174; 74177; 80053; 81003; 82010; 82805; 83036; 83605; 83690; 83735; 84478; 84484; 85025; 86140; 87040; 87149; 93005; 96361; 96374; 96375; 96376; J1170; J1650; J1815; J2270; J2405; J2765; J3010; J7050; Q9967; S0028

== ENCOUNTER 2023-07-21 18:37 | Emergency (ER) | payer BC | END 2023-07-21 22:30 | disposition home or self-care (01) | LOC: ERS 18:37 | DX: S93.402A Sprain of unspecified ligament of left ankle, initial encounter (principal); I10 Essential (primary) hypertension; E11.9 Type 2 diabetes mellitus without complications; X58.XXXA Exposure to other specified factors, initial encounter; Z86.16 Personal history of COVID-19 ==

== ENCOUNTER 2023-08-11 17:56 | Inpatient (IN) | payer BC ==
[2023-08-11] MEDS ORDERED: Morphine 4 MG/ML VIAL ONE (18:18)
[2023-08-11] MEDS ORDERED: Ondansetron PF 4 MG/2 ML Vial ONE ×2 (18:18→20:06)
[2023-08-11] MEDS ORDERED: fentaNYL 50 mcg/mL 1 mL Vial ONE (18:41)
[2023-08-11 18:56] LABS: Bacteria/HPF None Seen HPF (None Seen); Bilirubin Negative (Negative); Blood, Urine Negative (Negative); CAUTI Indications for Culture Pelvic or flank pain; Clarity Clear (Clear); Glucose, Urine (Dipstick) Greater than 1000 mg/dL (Negative); Ketone, Urine 100 mg/dL (Negative); Leukocyte Negative Leu/uL (Negative); Nitrite Negative (Negative); Protein, Urine (Dipstick) Negative (Neg-Trace); RBC/HPF None Seen HPF (0-3); Specific Gravity, Urine 1.037 (1.002-1.036); Squamous Epithelial 0-3 HPF (0-3); Urobilinogen Normal mg/dL (Less than 2); WBC/HPF 0-3 HPF (0-3); pH, Urine 5.5 (5.0-9.0)
[2023-08-11 18:57] LABS: Urine Culture Reflex No No
[2023-08-11 19:04] LABS: Glucose 136 mg/dL (70-105)
[2023-08-11 19:15] LABS: #Eosinphils 0.3 thou/uL (0.0-0.7); #Monocytes 0.7 thou/uL (0.11-0.59); #Neutrophils 5.6 thou/uL (1.40-6.50); %Basophils 0.3 % (0.0-1.0); %Lymphocytes 24.7 % (21.0-51.0); %Monocytes 7.5 % (0.0-10.0); %Neutrophils 64.2 % (42.0-75.0); Hematocrit 45.4 % (42.0-52.0); Hemoglobin 16.6 g/dL (14.0-18.0); Mean Corpuscular HGB CONC 36.6 g/dL (32.0-36.0); Mean Corpuscular Hemoglobin 33.9 pg (27.0-31.0); Mean Corpuscular Volume 92.8 fl (78.0-98.0); Mean Platelet Volume 10.1 fL (7.4-10.4); Platelet Count 180 10x3/uL (130-400); RBC Distribution Width 11.7 % (11.5-14.5); Red Blood Cell (RBC) Count 4.89 mill/uL (4.70-6.10); White Blood Cell (WBC) Count 8.7 10x3/uL (4.8-10.8)
[2023-08-11 19:48] LABS: Albumin 4.2 g/dL (3.5-5.0); Bilirubin, Total 0.8 mg/dL (0.2-1.2)
[2023-08-11 19:50] LABS: Calcium 9.9 mg/dL (7.8-10.44); Chloride 96 mmol/L (98-107); Globulin 3.1 g/dL (2.4-3.5); Potassium 4.1 mmol/L (3.5-5.1); Protein, Total 7.3 g/dL (6.0-8.3); Sodium 126 mmol/L (136-145)
[2023-08-11 19:51] LABS: Lipase 168 U/L (8-78)
[2023-08-11 19:52] LABS: Alkaline Phosphatase 98 U/L (40-110)
[2023-08-11 19:53] LABS: Calc. Creatinine Clearance 0 mL/min (70-130); Estimated GFR 91
[2023-08-11 19:54] LABS: BUN (Urea Nitrogen) 16 mg/dL (8.9-20.6)
[2023-08-11 19:55] LABS: AST (SGOT) 36 U/L (5-34)
[2023-08-11 19:56] LABS: ALT (SGPT) 51 U/L (8-55); Anion Gap 18 mmol/L (10-20); Carbon Dioxide 16 mmol/L (22-29)
[2023-08-11] MEDS ORDERED: HYDROmorphone 0.5 MG/0.5 ML SYRINGE ONE (20:02)
[2023-08-11] MEDS ORDERED: INSULIN REGULAR IN 0.9 % NACL 100 UNITS/100 ML BAG ONE (20:46)
[2023-08-11] MEDS ORDERED: NS 0.9% w/ 20 MEQ KCL 1,000 ML ONE (21:20)
[2023-08-11] MEDS ORDERED: Dextrose 5% in Water 1,000 ML IV PRN (22:20)
[2023-08-11] MEDS ORDERED: Glucagon 1 MG/ML KIT IM PRN (22:20)
[2023-08-11] MEDS ORDERED: Dextrose 50% Abboject 50 ML SYRINGE SLOW IVP PRN (22:20)
[2023-08-11] MEDS ORDERED: Ondansetron ODT 4 MG TAB PO PRN (22:21)
[2023-08-11] MEDS ORDERED: Calcium Carbonate 500 MG ChewTAB PO PRN (22:21)
[2023-08-11] MEDS ORDERED: Acetaminophen 650 MG Suppository PR PRN (22:21)
[2023-08-11] MEDS ORDERED: D5 LR w/20 mEq KCL 1,000 ML IV SCH (22:30)
[2023-08-11 22:59] LABS: SARS-CoV-2 NAA Rapid Test Not Detected (NotDetected)
[2023-08-12] MEDS: HUMULIN R 100 UNITS in Sodium Chloride 0.9% 100 ML IVPB SCH (00:09)
[2023-08-12] MEDS ORDERED: fentaNYL 50 mcg/mL 1 mL Vial SLOW IVP SCH (00:30)
[2023-08-12] MEDS ORDERED: Electrolyte Replacement Protocol 1 EACH FS PRN (01:18)
[2023-08-12] MEDS ORDERED: Dextrose 50% Abboject 50 ML SYRINGE SLOW IVP PRN (01:32)
[2023-08-12] MEDS ORDERED: PROMETHAZINE HCL IVPB SCH (01:45)
[2023-08-12] MEDS ORDERED: SODIUM CHLORIDE 0.9% IVPB SCH (01:45)
[2023-08-12 02:00] LABS: #Eosinphils 0.2 thou/uL (0.0-0.7); #Monocytes 0.5 thou/uL (0.11-0.59); #Neutrophils 4.2 thou/uL (1.40-6.50); %Basophils 0.4 % (0.0-1.0); %Eosinophils 2.5 % (0.0-10.0); %Lymphocytes 31.5 % (21.0-51.0); %Neutrophils 58.5 % (42.0-75.0); Hematocrit 40.5 % (42.0-52.0); Hemoglobin 17.6 g/dL (14.0-18.0); Mean Corpuscular HGB CONC 43.5 g/dL (32.0-36.0); Mean Corpuscular Hemoglobin 40.6 pg (27.0-31.0); Mean Corpuscular Volume 93.5 fl (78.0-98.0); Mean Platelet Volume 9.8 fL (7.4-10.4); Platelet Count 160 10x3/uL (130-400); RBC Distribution Width 11.6 % (11.5-14.5); Red Blood Cell (RBC) Count 4.33 mill/uL (4.70-6.10); White Blood Cell (WBC) Count 7.1 10x3/uL (4.8-10.8)
[2023-08-12] MEDS ORDERED: diphenhydrAMINE 50 MG/ML VIAL IVP SCH (02:00)
[2023-08-12 03:01] LABS: Cardiac Risk 65.6 (Less than 4.5); Cholesterol 722 mg/dl (< 200 Desired); HDL Cholesterol 11 mg/dL (>60 Neg Risk)
[2023-08-12 03:02] LABS: Lipase 163 U/L (8-78)
[2023-08-12 03:06] LABS: Triglycerides Greater than 3800 mg/dL (Less than 150)
[2023-08-12] MEDS ORDERED: D5 LR w/20 mEq KCL 1,000 ML IV SCH (03:30)
[2023-08-12 03:55] LABS: Calcium 8.5 mg/dL (7.8-10.44); Chloride 105 mmol/L (98-107); Potassium 4.5 mmol/L (3.5-5.1); Sodium 134 mmol/L (136-145)
[2023-08-12 03:56] LABS: Glucose 119 mg/dL (70-105)
[2023-08-12 03:57] LABS: Anion Gap 21 mmol/L (10-20); Carbon Dioxide 13 mmol/L (22-29)
[2023-08-12 03:59] LABS: Calc. Creatinine Clearance 207 mL/min (70-130); Estimated GFR 116
[2023-08-12 04:00] LABS: BUN (Urea Nitrogen) 10 mg/dL (8.9-20.6)
[2023-08-12 04:01] LABS: Magnesium 1.8 mg/dL (1.6-2.6)
[2023-08-12] MEDS ORDERED: Sodium Bicarbonate 150 MEQ in Dextrose 5% in Water 1,000 ML IV SCH (06:30)
[2023-08-12] MEDS: Morphine 4 MG/ML VIAL SLOW IVP PRN ×4 (06:46→21:45)
[2023-08-12] MEDS: Ondansetron PF 4 MG/2 ML Vial IVP PRN ×3 (06:46→21:45)
[2023-08-12] MEDS ORDERED: Magnesium 2 GM/50 ML(in water) 2 GM in Premix 1 BAG IVPB SCH (08:00)
[2023-08-12] MEDS: Sodium Bicarbonate 150 MEQ in Dextrose 5% in Water 1,000 ML IV SCH ×3 (08:52→21:45)
[2023-08-12] MEDS: Lisinopril 10 MG TAB PO SCH (08:53)
[2023-08-12] MEDS: Atorvastatin Calcium 10 MG TAB PO SCH (08:53)
[2023-08-12] MEDS: Heparin 5,000 UNITS/ML VIAL SC SCH ×2 (08:53→21:46)
[2023-08-12] MEDS: Gemfibrozil 600 MG TAB PO SCH ×2 (08:53→17:06)
[2023-08-12 11:22] LABS: Anion Gap 20 mmol/L (10-20); BUN (Urea Nitrogen) 8 mg/dL (8.9-20.6); Calc. Creatinine Clearance 195 mL/min (70-130); Carbon Dioxide 14 mmol/L (22-29); Chloride 100 mmol/L (98-107); Estimated GFR 114; Glucose 126 mg/dL (70-105); Potassium 4.1 mmol/L (3.5-5.1); Sodium 130 mmol/L (136-145); Triglycerides 3641 mg/dL (Less than 150)
[2023-08-12 21:12] LABS: Glucose 122 mg/dL (70-105)
[2023-08-13 00:06] LABS: Glucose 135 mg/dL (70-105)
[2023-08-13 01:46] LABS: Glucose 148 mg/dL (70-105)
[2023-08-13] MEDS: Morphine 4 MG/ML VIAL SLOW IVP PRN ×5 (02:10→22:40)
[2023-08-13] MEDS: Sodium Bicarbonate 150 MEQ in Dextrose 5% in Water 1,000 ML IV SCH ×5 (04:00→22:42)
[2023-08-13] MEDS: Ondansetron PF 4 MG/2 ML Vial IVP PRN ×3 (04:00→19:39)
[2023-08-13 04:31] LABS: Glucose 150 mg/dL (70-105)
[2023-08-13 04:38] LABS: Lipase 56 U/L (8-78)
[2023-08-13 04:47] LABS: Triglycerides 1630 mg/dL (Less than 150)
[2023-08-13 06:08] LABS: Glucose 148 mg/dL (70-105)
[2023-08-13 08:27] LABS: Glucose 146 mg/dL (70-105)
[2023-08-13] MEDS ORDERED: Ezetimibe 10 MG TAB PO SCH (09:00)
[2023-08-13] MEDS: Heparin 5,000 UNITS/ML VIAL SC SCH ×2 (09:05→20:19)
[2023-08-13] MEDS: Lisinopril 10 MG TAB PO SCH (09:06)
[2023-08-13] MEDS: Atorvastatin Calcium 10 MG TAB PO SCH (09:06)
[2023-08-13] MEDS: Gemfibrozil 600 MG TAB PO SCH ×2 (09:06→16:32)
[2023-08-13] MEDS: fentaNYL 50 mcg/mL 1 mL Vial SLOW IVP PRN (19:39)
[2023-08-13] MEDS ORDERED: Promethazine HCl 12.5 MG in Sodium Chloride 0.9% 50 ML IVPB PRN (22:50)
[2023-08-13] MEDS: HUMULIN R 100 UNITS in Sodium Chloride 0.9% 100 ML IVPB SCH (23:16)
[2023-08-13 23:34] LABS: Glucose 157 mg/dL (70-105)
[2023-08-14 02:05] LABS: Glucose 168 mg/dL (70-105)
[2023-08-14] MEDS: fentaNYL 50 mcg/mL 1 mL Vial SLOW IVP PRN ×3 (03:28→22:20)
[2023-08-14 04:59] LABS: #Eosinphils 0.2 thou/uL (0.0-0.7); #Monocytes 0.5 thou/uL (0.11-0.59); %Basophils 0.5 % (0.0-1.0); %Eosinophils 5.1 % (0.0-10.0); %Lymphocytes 37.4 % (21.0-51.0); %Monocytes 10.9 % (0.0-10.0); %Neutrophils 45.9 % (42.0-75.0); Hematocrit 41.6 % (42.0-52.0); Hemoglobin 14.7 g/dL (14.0-18.0); Mean Corpuscular HGB CONC 35.3 g/dL (32.0-36.0); Mean Corpuscular Hemoglobin 33.4 pg (27.0-31.0); Mean Corpuscular Volume 94.5 fl (78.0-98.0); Mean Platelet Volume 10.2 fL (7.4-10.4); Platelet Count 135 10x3/uL (130-400); RBC Distribution Width 11.5 % (11.5-14.5); White Blood Cell (WBC) Count 4.3 10x3/uL (4.8-10.8)
[2023-08-14] MEDS: Sodium Bicarbonate 150 MEQ in Dextrose 5% in Water 1,000 ML IV SCH (05:11)
[2023-08-14 05:15] LABS: Glucose 168 mg/dL (70-105)
[2023-08-14 05:25] LABS: ALT (SGPT) 101 U/L (8-55); AST (SGOT) 65 U/L (5-34); Albumin 3.2 g/dL (3.5-5.0); Alkaline Phosphatase 81 U/L (40-110); Anion Gap 14 mmol/L (10-20); BUN (Urea Nitrogen) 6 mg/dL (8.9-20.6); Bilirubin, Total 0.5 mg/dL (0.2-1.2); Calc. Creatinine Clearance 237 mL/min (70-130); Calcium 8.8 mg/dL (7.8-10.44); Carbon Dioxide 29 mmol/L (22-29); Chloride 95 mmol/L (98-107); Estimated GFR 121; Globulin 3.6 g/dL (2.4-3.5); Glucose 167 mg/dL (70-105); Potassium 3.7 mmol/L (3.5-5.1); Protein, Total 6.8 g/dL (6.0-8.3); Sodium 134 mmol/L (136-145); Triglycerides 680 mg/dL (Less than 150)
[2023-08-14] MEDS: Acetaminophen 325 MG TAB PO PRN (06:17)
[2023-08-14] MEDS: Atorvastatin Calcium 10 MG TAB PO SCH (08:45)
[2023-08-14] MEDS: Heparin 5,000 UNITS/ML VIAL SC SCH ×2 (08:46→20:25)
[2023-08-14] MEDS: Gemfibrozil 600 MG TAB PO SCH ×2 (08:46→15:16)
[2023-08-14] MEDS: Polyethylene Glycol 3350 17 GM Packet PO SCH (08:47)
[2023-08-14] MEDS: Ondansetron PF 4 MG/2 ML Vial IVP PRN ×3 (08:47→22:20)
[2023-08-14] MEDS: Morphine 4 MG/ML VIAL SLOW IVP PRN ×2 (08:48→19:15)
[2023-08-14] MEDS: Sodium Chloride 0.9% 1,000 ML IV SCH ×2 (08:57→17:42)
[2023-08-14] MEDS ORDERED: HumaLOG 300 UNITS/3 ML VIAL SC PRN (15:03)
[2023-08-15 04:20] LABS: #Eosinphils 0.3 thou/uL (0.0-0.7); #Monocytes 0.5 thou/uL (0.11-0.59); #Neutrophils 1.1 thou/uL (1.40-6.50); %Basophils 0.5 % (0.0-1.0); %Eosinophils 6.8 % (0.0-10.0); %Monocytes 12.8 % (0.0-10.0); %Neutrophils 28.9 % (42.0-75.0); Hematocrit 43.6 % (42.0-52.0); Hemoglobin 15.2 g/dL (14.0-18.0); Mean Corpuscular HGB CONC 34.9 g/dL (32.0-36.0); Mean Corpuscular Hemoglobin 33.2 pg (27.0-31.0); Mean Corpuscular Volume 95.2 fl (78.0-98.0); Mean Platelet Volume 10.3 fL (7.4-10.4); Platelet Count 129 10x3/uL (130-400); RBC Distribution Width 11.5 % (11.5-14.5); Red Blood Cell (RBC) Count 4.58 mill/uL (4.70-6.10); White Blood Cell (WBC) Count 3.7 10x3/uL (4.8-10.8)
[2023-08-15 04:56] LABS: ALT (SGPT) 151 U/L (8-55); AST (SGOT) 82 U/L (5-34); Albumin 3.4 g/dL (3.5-5.0); Alkaline Phosphatase 88 U/L (40-110); BUN (Urea Nitrogen) 9 mg/dL (8.9-20.6); Bilirubin, Total 0.5 mg/dL (0.2-1.2); Calc. Creatinine Clearance 229 mL/min (70-130); Calcium 9.1 mg/dL (7.8-10.44); Carbon Dioxide 25 mmol/L (22-29); Chloride 95 mmol/L (98-107); Estimated GFR 119; Globulin 3.1 g/dL (2.4-3.5); Glucose 119 mg/dL (70-105); Potassium 3.6 mmol/L (3.5-5.1); Protein, Total 6.5 g/dL (6.0-8.3); Triglycerides 596 mg/dL (Less than 150)
[2023-08-15 05:02] LABS: Sodium 114 mmol/L (136-145)
[2023-08-15] MEDS: Ondansetron PF 4 MG/2 ML Vial IVP PRN ×2 (05:34→14:40)
[2023-08-15] MEDS: Sodium Chloride 0.9% 1,000 ML IV SCH ×3 (05:34→18:40)
[2023-08-15] MEDS: fentaNYL 50 mcg/mL 1 mL Vial SLOW IVP PRN ×2 (05:34→12:20)
[2023-08-15 06:43] LABS: Anion Gap 14 mmol/L (10-20); BUN (Urea Nitrogen) 10 mg/dL (8.9-20.6); Calc. Creatinine Clearance 239 mL/min (70-130); Calcium 8.9 mg/dL (7.8-10.44); Carbon Dioxide 24 mmol/L (22-29); Chloride 101 mmol/L (98-107); Estimated GFR 121; Glucose 118 mg/dL (70-105); Potassium 4.3 mmol/L (3.5-5.1); Sodium 135 mmol/L (136-145)
[2023-08-15] MEDS: Polyethylene Glycol 3350 17 GM Packet PO SCH (09:27)
[2023-08-15] MEDS: Atorvastatin Calcium 10 MG TAB PO SCH (09:28)
[2023-08-15] MEDS: Gemfibrozil 600 MG TAB PO SCH ×2 (09:28→15:29)
[2023-08-15] MEDS: Heparin 5,000 UNITS/ML VIAL SC SCH ×2 (09:29→21:04)
[2023-08-15] MEDS: Morphine 4 MG/ML VIAL SLOW IVP PRN (14:40)
[2023-08-15] MEDS ORDERED: Morphine 4 MG/ML VIAL SLOW IVP PRN (16:22)
[2023-08-15] MEDS: diphenhydrAMINE 25 MG CAP PO PRN (17:09)
[2023-08-15] MEDS: HYDROcodone/Acetaminophen 5/325 mg Tablet PO PRN ×2 (17:09→21:11)
[2023-08-16] MEDS: HYDROcodone/Acetaminophen 5/325 mg Tablet PO PRN ×4 (03:11→21:50)
[2023-08-16] MEDS: Sodium Chloride 0.9% 1,000 ML IV SCH ×3 (03:13→20:21)
[2023-08-16] MEDS: diphenhydrAMINE 25 MG CAP PO PRN (03:15)
[2023-08-16 06:09] LABS: #Eosinphils 0.3 thou/uL (0.0-0.7); #Monocytes 0.5 thou/uL (0.11-0.59); #Neutrophils 1.1 thou/uL (1.40-6.50); %Basophils 0.3 % (0.0-1.0); %Lymphocytes 50.3 % (21.0-51.0); %Monocytes 13.4 % (0.0-10.0); Hematocrit 42.7 % (42.0-52.0); Hemoglobin 14.6 g/dL (14.0-18.0); Mean Corpuscular HGB CONC 34.2 g/dL (32.0-36.0); Mean Corpuscular Volume 96.4 fl (78.0-98.0); Mean Platelet Volume 9.9 fL (7.4-10.4); Platelet Count 138 10x3/uL (130-400); RBC Distribution Width 11.3 % (11.5-14.5); Red Blood Cell (RBC) Count 4.43 mill/uL (4.70-6.10); White Blood Cell (WBC) Count 3.9 10x3/uL (4.8-10.8)
[2023-08-16 06:35] LABS: ALT (SGPT) 193 U/L (8-55); AST (SGOT) 110 U/L (5-34); Albumin 3.4 g/dL (3.5-5.0); Alkaline Phosphatase 95 U/L (40-110); Anion Gap 12 mmol/L (10-20); BUN (Urea Nitrogen) 11 mg/dL (8.9-20.6); Bilirubin, Total 0.5 mg/dL (0.2-1.2); Calc. Creatinine Clearance 217 mL/min (70-130); Carbon Dioxide 22 mmol/L (22-29); Chloride 104 mmol/L (98-107); Estimated GFR 117; Globulin 2.9 g/dL (2.4-3.5); Glucose 133 mg/dL (70-105); Potassium 4.2 mmol/L (3.5-5.1); Protein, Total 6.3 g/dL (6.0-8.3); Sodium 134 mmol/L (136-145)
[2023-08-16] MEDS: Atorvastatin Calcium 10 MG TAB PO SCH (08:43)
[2023-08-16] MEDS: Heparin 5,000 UNITS/ML VIAL SC SCH ×2 (08:43→20:21)
[2023-08-16] MEDS: Polyethylene Glycol 3350 17 GM Packet PO SCH (08:44)
[2023-08-16] MEDS: Gemfibrozil 600 MG TAB PO SCH ×2 (08:44→17:19)
[2023-08-16 12:28] VITALS: BMI 41.1
[2023-08-17] MEDS: Sodium Chloride 0.9% 1,000 ML IV SCH (05:00)
[2023-08-17] MEDS: Polyethylene Glycol 3350 17 GM Packet PO SCH (08:34)
[2023-08-17] MEDS: Heparin 5,000 UNITS/ML VIAL SC SCH (08:35)
[2023-08-17] MEDS: Atorvastatin Calcium 10 MG TAB PO SCH (08:35)
[2023-08-17] MEDS: Gemfibrozil 600 MG TAB PO SCH (08:35)
[2023-08-17] MEDS: Acetaminophen 325 MG TAB PO PRN (10:07)
[2023-08-17 10:58] VITALS: BP 131/89; TEMP 97.8
== END 2023-08-17 10:54 | disposition home or self-care (01) | DRG 642 ==
LOC: ERS 17:56 → CCU 22:00 → IMCU/EMU 08-12 18:58 → T4-A 08-15 14:14
PROVIDERS: ADMIT Student in an Organized Health Care Education/Training Program; ATTEND Internal Medicine
DX: E78.1 Pure hyperglyceridemia (principal); K85.90 Acute pancreatitis without necrosis or infection, unspecified; E87.1 Hypo-osmolality and hyponatremia; Z68.41 Body mass index [BMI] 40.0-44.9, adult; K86.1 Other chronic pancreatitis; E11.9 Type 2 diabetes mellitus without complications; I10 Essential (primary) hypertension; E78.5 Hyperlipidemia, unspecified; K21.9 Gastro-esophageal reflux disease without esophagitis; E66.01 Morbid (severe) obesity due to excess calories; E88.89 Other specified metabolic disorders; Z90.49 Acquired absence of other specified parts of digestive tract; Z98.890 Other specified postprocedural states; Z79.4 Long term (current) use of insulin; Z79.899 Other long term (current) drug therapy; Z79.84 Long term (current) use of oral hypoglycemic drugs; Z11.52 Encounter for screening for COVID-19
CPT/HCPCS: 36415; 36416; 71045; 74177; 80048; 80053; 80061; 81001; 82947; 83690; 83735; 83880; 84478; 85025; 93005; 96361; 96365; 96368; 96375; 96376; J0780; J1170; J1200; J1644; J1815; J2270; J2405; J3010; J3475; J3480; J3490; J7050; J7070; J7999; Q9967; U0002

== ENCOUNTER 2023-10-02 20:43 | Emergency (ER) | payer BC ==
[2023-10-02 21:23] LABS: #Eosinphils 0.3 thou/uL (0.0-0.7); #Monocytes 0.6 thou/uL (0.11-0.59); #Neutrophils 2.5 thou/uL (1.40-6.50); %Basophils 0.5 % (0.0-1.0); %Eosinophils 4.7 % (0.0-10.0); %Lymphocytes 46.5 % (21.0-51.0); %Monocytes 9.4 % (0.0-10.0); %Neutrophils 38.9 % (42.0-75.0); Hematocrit 41.5 % (42.0-52.0); Hemoglobin 14.1 g/dL (14.0-18.0); Mean Corpuscular Hemoglobin 32.5 pg (27.0-31.0); Mean Corpuscular Volume 95.6 fl (78.0-98.0); Mean Platelet Volume 9.3 fL (7.4-10.4); Platelet Count 236 10x3/uL (130-400); RBC Distribution Width 11.7 % (11.5-14.5); Red Blood Cell (RBC) Count 4.34 mill/uL (4.70-6.10); White Blood Cell (WBC) Count 6.4 10x3/uL (4.8-10.8)
[2023-10-02 21:46] LABS: ALT (SGPT) 61 U/L (8-55); AST (SGOT) 37 U/L (5-34); Albumin 4.4 g/dL (3.5-5.0); Alkaline Phosphatase 81 U/L (40-110); Anion Gap 11 mmol/L (10-20); BUN (Urea Nitrogen) 16 mg/dL (8.9-20.6); Bilirubin, Total 0.6 mg/dL (0.2-1.2); Calc. Creatinine Clearance 0 mL/min (70-130); Calcium 9.5 mg/dL (7.8-10.44); Carbon Dioxide 25 mmol/L (22-29); Chloride 104 mmol/L (98-107); Estimated GFR 93; Globulin 2.6 g/dL (2.4-3.5); Glucose 108 mg/dL (70-105); Sodium 136 mmol/L (136-145)
[2023-10-02 21:55] LABS: Bacteria/HPF None Seen HPF (None Seen); Bilirubin Negative (Negative); Blood, Urine Negative (Negative); CAUTI Indications for Culture Pelvic or flank pain; Clarity Clear (Clear); Glucose, Urine (Dipstick) Normal (Negative); Ketone, Urine Negative (Negative); Leukocyte Negative Leu/uL (Negative); Nitrite Negative (Negative); Protein, Urine (Dipstick) Negative (Neg-Trace); RBC/HPF 0-3 HPF (0-3); Specific Gravity, Urine 1.016 (1.002-1.036); Squamous Epithelial 0-3 HPF (0-3); Urobilinogen Normal mg/dL (Less than 2); WBC/HPF None Seen HPF (0-3); pH, Urine 6.5 (5.0-9.0)
[2023-10-02 21:59] LABS: Urine Culture Reflex No No
[2023-10-02] MEDS ORDERED: Ondansetron PF 4 MG/2 ML Vial ONE ×2 (22:14→23:48)
[2023-10-02] MEDS ORDERED: Ketorolac Tromethamine 30 MG (1 mL) VIAL ONE ×2 (22:14→23:48)
[2023-10-02] MEDS ORDERED: Morphine 4 MG/ML VIAL ONE (22:14)
[2023-10-02 23:02] LABS: Troponin I Less than 0.010 ng/mL (< 0.028)
[2023-10-02] MEDS ORDERED: fentaNYL 50 mcg/mL 1 mL Vial ONE (23:16)
== END 2023-10-03 02:03 | disposition home or self-care (01) ==
LOC: ERS 20:43
DX: N20.0 Calculus of kidney (principal); E11.9 Type 2 diabetes mellitus without complications; I10 Essential (primary) hypertension; Z79.4 Long term (current) use of insulin; Z79.84 Long term (current) use of oral hypoglycemic drugs; Z79.899 Other long term (current) drug therapy
CPT/HCPCS: 36415; 71045; 74177; 80053; 81001; 83690; 84478; 84484; 85025; 96361; 96374; 96375; 96376; J1885; J2270; J2405; J3010; Q9967

== ENCOUNTER 2024-01-12 18:09 | Emergency (ER) | payer BC ==
[2024-01-12] MEDS ORDERED: Ketorolac Tromethamine 30 MG (1 mL) VIAL ONE (18:37)
[2024-01-12] MEDS ORDERED: Ondansetron PF 4 MG/2 ML Vial ONE (18:37)
[2024-01-12] MEDS ORDERED: fentaNYL 50 mcg/mL 1 mL Vial ONE (19:16)
[2024-01-12 19:34] LABS: #Basophils 0.03 10x3/uL (0.0-0.2); %Basophils 0.6 % (0.0-1.0); %Eosinophils 3.3 % (0.0-10.0); %Lymphocytes 48.4 % (21.0-51.0); %Monocytes 8.9 % (0.0-10.0); %Neutrophils 38.6 % (42.0-75.0); Hematocrit 38.3 % (42.0-52.0); Hemoglobin 13.3 g/dL (14.0-18.0); Mean Corpuscular HGB CONC 34.7 g/dL (32.0-36.0); Mean Corpuscular Hemoglobin 32.8 pg (27.0-31.0); Mean Corpuscular Volume 94.6 fL (78.0-98.0); Mean Platelet Volume 9.5 fL (7.4-10.4); Platelet Count 236 10x3/uL (130-400); RBC Distribution Width 11.3 % (11.5-14.5); Red Blood Cell (RBC) Count 4.05 mill/uL (4.70-6.10)
[2024-01-12 19:48] LABS: ALT (SGPT) 42 U/L (8-55); AST (SGOT) 26 U/L (5-34); Albumin 3.9 g/dL (3.5-5.0); Alkaline Phosphatase 105 U/L (40-110); Anion Gap 15 mmol/L (10-20); BUN (Urea Nitrogen) 21 mg/dL (8.9-20.6); Bilirubin, Total 0.4 mg/dL (0.2-1.2); Calc. Creatinine Clearance 0 mL/min (70-130); Calcium 9.4 mg/dL (7.8-10.44); Carbon Dioxide 21 mmol/L (22-29); Chloride 107 mmol/L (98-107); Estimated GFR 115; Globulin 3.2 g/dL (2.4-3.5); Glucose 121 mg/dL (70-105); Lipase 29 U/L (8-78); Protein, Total 7.1 g/dL (6.0-8.3); Sodium 139 mmol/L (136-145)
[2024-01-12 20:17] LABS: Bilirubin Negative (Negative); Blood, Urine Negative (Negative); Glucose, Urine (Dipstick) Negative (Negative); Ketone, Urine Negative (Negative); Leukocyte Negative (Negative); Nitrite Negative (Negative); Protein, Urine (Dipstick) Negative (Neg-Trace); Specific Gravity, Urine 1.025 (1.005-1.030); Urobilinogen 0.2 mg/dL (Less than 2)
[2024-01-12 20:18] LABS: Bacteria/HPF None Seen HPF (None Seen); CAUTI Indications for Culture Pelvic or flank pain; RBC/HPF None Seen HPF (0-3); Squamous Epithelial None Seen HPF (0-3); WBC/HPF None Seen HPF (0-3)
[2024-01-12 20:19] LABS: Clarity Clear (Clear)
[2024-01-12 20:21] LABS: Urine Culture Reflex No No
[2024-01-12] MEDS ORDERED: HYDROmorphone 0.5 MG/0.5 ML SYRINGE ONE (21:28)
== END 2024-01-13 00:45 | disposition home or self-care (01) ==
LOC: ERS 18:09
DX: R10.9 Unspecified abdominal pain (principal); I10 Essential (primary) hypertension; E11.9 Type 2 diabetes mellitus without complications
CPT/HCPCS: 74176; 80053; 81001; 83690; 85025; 87086; 96374; 96375; J1170; J1885; J2405; J3010

== ENCOUNTER 2024-04-22 23:23 | Emergency (ER) | payer BC ==
[2024-04-22 23:45] LABS: #Basophils 0.03 10x3/uL (0.0-0.2); %Basophils 0.4 % (0.0-1.0); %Eosinophils 2.9 % (0.0-10.0); %Lymphocytes 34.1 % (21.0-51.0); %Monocytes 10.3 % (0.0-10.0); %Neutrophils 52.2 % (42.0-75.0); Hemoglobin 15.8 g/dL (14.0-18.0); Mean Corpuscular HGB CONC 36.7 g/dL (32.0-36.0); Mean Corpuscular Hemoglobin 33.6 pg (27.0-31.0); Mean Corpuscular Volume 91.5 fL (78.0-98.0); Mean Platelet Volume 9.6 fL (7.4-10.4); Platelet Count 218 10x3/uL (130-400); RBC Distribution Width 11.5 % (11.5-14.5)
[2024-04-22 23:58] LABS: Lipase 29 U/L (8-78)
[2024-04-23] LABS: Acetaminophen Less than 10 mcg/mL (Less than 10); Alcohol Less than 10.0 mg/dL (Less than 10); Salicylate Less than 8.0 mg/dL (Less than 8.0)
[2024-04-23 00:01] LABS: ALT (SGPT) 55 U/L (8-55); AST (SGOT) 34 U/L (5-34); Albumin 4.2 g/dL (3.5-5.0); Alkaline Phosphatase 121 U/L (40-110); Anion Gap 14 mmol/L (10-20); BUN (Urea Nitrogen) 19 mg/dL (8.9-20.6); Calc. Creatinine Clearance 0 mL/min (70-130); Calcium 9.6 mg/dL (7.8-10.44); Carbon Dioxide 25 mmol/L (22-29); Chloride 104 mmol/L (98-107); Estimated GFR 96; Globulin 3.2 g/dL (2.4-3.5); Glucose 178 mg/dL (70-105); Protein, Total 7.4 g/dL (6.0-8.3); Sodium 138 mmol/L (136-145)
[2024-04-23 00:18] LABS: Troponin I 0.023 ng/mL (< 0.028)
[2024-04-23 00:21] LABS: Influenza A by NAA Not Detected (NotDetected); Influenza B by NAA Not Detected (NotDetected); SARS-CoV-2 NAA Rapid Test Not Detected (NotDetected)
[2024-04-23] MEDS ORDERED: fentaNYL 50 mcg/mL 1 mL Vial ONE ×2 (00:23→02:13)
[2024-04-23] MEDS ORDERED: Ondansetron PF 4 MG/2 ML Vial ONE ×2 (00:23→02:13)
[2024-04-23 02:58] LABS: Bacteria/HPF None Seen HPF (None Seen); Bilirubin Negative (Negative); Blood, Urine Negative (Negative); CAUTI Indications for Culture Alt mental st,lethar; Clarity Clear (Clear); Glucose, Urine (Dipstick) Normal (Negative); Ketone, Urine Negative (Negative); Leukocyte Negative Leu/uL (Negative); Nitrite Negative (Negative); Protein, Urine (Dipstick) 20 mg/dL (Neg-Trace); RBC/HPF 0-3 HPF (0-3); Specific Gravity, Urine 1.039 (1.002-1.036); Squamous Epithelial None Seen HPF (0-3); Urobilinogen Normal mg/dL (Less than 2); WBC/HPF 0-3 HPF (0-3)
[2024-04-23 03:06] LABS: Amphetamine Not Detected (NotDetected); Barbiturates Screen Not Detected (NotDetected); Benzodiazepine Screen Not Detected (NotDetected); Cocaine Metabolite Screen Not Detected (NotDetected); Methadone Not Detected (NotDetected); Methamphetamine Not Detected (NotDetected); Opiate Screen Not Detected (NotDetected); Oxycodone Screen Not Detected (NotDetected); Phencyclidine (PCP) Not Detected (NotDetected); THC/Cannabinoid Screen Not Detected (NotDetected); Tricyclic Screen Detected (NotDetected)
[2024-04-23 03:22] LABS: Urine Culture Reflex No No
[2024-04-23] MEDS ORDERED: Ketorolac Tromethamine 30 MG (1 mL) VIAL ONE (03:46)
[2024-04-23] MEDS ORDERED: Iopamidol-370 76% 500 ML MDV (1 ML CHARGE) ONE (13:43)
== END 2024-04-23 04:36 | disposition home or self-care (01) ==
LOC: ERS 23:23
DX: T67.5XXA Heat exhaustion, unspecified, initial encounter (principal); E86.0 Dehydration; K04.7 Periapical abscess without sinus; E78.1 Pure hyperglyceridemia; R51.9 Headache, unspecified; R10.84 Generalized abdominal pain; R11.0 Nausea; I10 Essential (primary) hypertension; E11.9 Type 2 diabetes mellitus without complications; X32.XXXA Exposure to sunlight, initial encounter; Y93.89 Activity, other specified; Y92.008 Other place in unspecified non-institutional (private) residence as the place of occurrence of the external cause
CPT/HCPCS: 36415; 36416; 70450; 71045; 74177; 80053; 80306; 80307; 81001; 83605; 83690; 84478; 84484; 85025; 93005; 96361; 96374; 96375; 96376; J1885; J2405; J3010; Q9967

== ENCOUNTER 2024-06-10 02:32 | Inpatient (IN) | payer BC ==
[2024-06-10] MEDS ORDERED: Ketorolac Tromethamine 30 MG (1 mL) VIAL ONE ×2 (03:58→06:39)
[2024-06-10] MEDS ORDERED: Morphine 4 MG/ML VIAL ONE ×2 (03:58→06:02)
[2024-06-10] MEDS ORDERED: Ondansetron PF 4 MG/2 ML Vial ONE (03:59)
[2024-06-10] MEDS ORDERED: Piperacillin/Tazobactam 3.375 GM VIAL ONE (03:59)
[2024-06-10] MEDS ORDERED: Sodium Chloride 0.9% 100 ML ONE (03:59)
[2024-06-10 04:02] LABS: #Basophils 0.03 10x3/uL (0.0-0.2); %Basophils 0.3 % (0.0-1.0); %Eosinophils 1.2 % (0.0-10.0); %Lymphocytes 4.6 % (21.0-51.0); %Monocytes 4.5 % (0.0-10.0); Hematocrit 43.4 % (42.0-52.0); Hemoglobin 16.3 g/dL (14.0-18.0); Mean Corpuscular HGB CONC 37.6 g/dL (32.0-36.0); Mean Corpuscular Hemoglobin 32.6 pg (27.0-31.0); Mean Corpuscular Volume 86.8 fL (78.0-98.0); Mean Platelet Volume 9.9 fL (7.4-10.4); Platelet Count 218 10x3/uL (130-400); RBC Distribution Width 11.3 % (11.5-14.5)
[2024-06-10] MEDS ORDERED: Acetaminophen 500 MG TAB ONE (04:14)
[2024-06-10 04:50] LABS: ALT (SGPT) 45 U/L (8-55); AST (SGOT) 40 U/L (5-34); Alkaline Phosphatase 153 U/L (40-110); Anion Gap 18 mmol/L (10-20); BUN (Urea Nitrogen) 26 mg/dL (8.9-20.6); Bilirubin, Total 0.6 mg/dL (0.2-1.2); Calc. Creatinine Clearance 0 mL/min (70-130); Calcium 9.4 mg/dL (7.8-10.44); Carbon Dioxide 17 mmol/L (22-29); Chloride 103 mmol/L (98-107); Estimated GFR 104; Glucose 253 mg/dL (70-105); Lipase 18 U/L (8-78); Potassium 4.3 mmol/L (3.5-5.1); Sodium 134 mmol/L (136-145)
[2024-06-10] MEDS ORDERED: Metoclopramide HCl 10 MG (2 mL) VIAL ONE (06:39)
[2024-06-10] MEDS ORDERED: diphenhydrAMINE 50 MG/ML VIAL ONE (06:39)
[2024-06-10 07:03] LABS: Bacteria/HPF None Seen HPF (None Seen); Bilirubin Negative (Negative); Blood, Urine Negative (Negative); CAUTI Indications for Culture Dysuria,urgency,freq; Clarity Clear (Clear); Glucose, Urine (Dipstick) 100 mg/dL (Negative); Ketone, Urine 10 mg/dL (Negative); Leukocyte Negative Leu/uL (Negative); Nitrite Negative (Negative); Protein, Urine (Dipstick) 10 mg/dL (Neg-Trace); RBC/HPF 0-3 HPF (0-3); Specific Gravity, Urine 1.049 (1.002-1.036); Squamous Epithelial None Seen HPF (0-3); Urobilinogen Normal mg/dL (Less than 2); WBC/HPF 0-3 HPF (0-3); pH, Urine 5.5 (5.0-9.0)
[2024-06-10 07:33] LABS: Urine Culture Reflex No No
[2024-06-10] MEDS ORDERED: Glucagon 1 MG/ML KIT IM PRN (09:02)
[2024-06-10] MEDS ORDERED: Dextrose 50% Abboject 50 ML SYRINGE SLOW IVP PRN (09:02)
[2024-06-10] MEDS ORDERED: Dextrose 5% in Water 1,000 ML IV PRN (09:02)
[2024-06-10] MEDS ORDERED: Iopamidol-370 76% 500 ML MDV (1 ML CHARGE) ONE (10:14)
[2024-06-10 11:44] VITALS: BMI 38.7
[2024-06-10] MEDS: Ketorolac Tromethamine 30 MG (1 mL) VIAL IVP PRN (12:59)
[2024-06-10] MEDS: Sodium Chloride 0.9% 1,000 ML IV SCH ×2 (13:40→16:28)
[2024-06-10] MEDS: Acetaminophen 325 MG TAB PO PRN (16:26)
[2024-06-10] MEDS: Heparin 5,000 UNITS/ML VIAL SC SCH (16:26)
[2024-06-10] MEDS: Piperacillin/Tazobactam 3.375 GM in Sodium Chloride 0.9% 100 ML IVPB SCH ×2 (19:45→22:28)
[2024-06-10] MEDS: Loperamide HCl 2 MG CAP PO PRN (19:51)
[2024-06-10] MEDS: Morphine 2 MG/ML VIAL SLOW IVP PRN (23:42)
[2024-06-11] MEDS: Ondansetron PF 4 MG/2 ML Vial IVP PRN (03:36)
[2024-06-11 04:47] LABS: Anion Gap 8 mmol/L (10-20); BUN (Urea Nitrogen) 16 mg/dL (8.9-20.6); Calc. Creatinine Clearance 176 mL/min (70-130); Carbon Dioxide 23 mmol/L (22-29); Chloride 112 mmol/L (98-107); Estimated GFR 112; Glucose 163 mg/dL (70-105); Potassium 3.9 mmol/L (3.5-5.1); Sodium 139 mmol/L (136-145)
[2024-06-11 04:55] LABS: Hemoglobin A1c 8.5 % (4.0-6.0)
[2024-06-11 05:12] LABS: #Basophils Less than 0.03 10x3/uL (0.0-0.2); #Eosinophils Less than 0.03 10x3/uL (0.0-0.7); %Basophils 0.3 % (0.0-1.0); %Lymphocytes 27.9 % (21.0-51.0); %Monocytes 18.4 % (0.0-10.0); %Neutrophils 53.4 % (42.0-75.0); Hematocrit 36.7 % (42.0-52.0); Hemoglobin 12.9 g/dL (14.0-18.0); Mean Corpuscular HGB CONC 35.1 g/dL (32.0-36.0); Mean Corpuscular Hemoglobin 33.3 pg (27.0-31.0); Mean Corpuscular Volume 94.8 fL (78.0-98.0); Mean Platelet Volume 9.3 fL (7.4-10.4); Platelet Count 134 10x3/uL (130-400); RBC Distribution Width 11.8 % (11.5-14.5); Red Blood Cell (RBC) Count 3.87 mill/uL (4.70-6.10)
[2024-06-11] MEDS: Pantoprazole DR 40 MG TAB PO SCH (08:24)
[2024-06-11] MEDS: FLU (Fluarix Triv) TS24-25(6MOS UP)/PF 45 MCG/0.5 ML Syringe IM ONE (10:11)
[2024-06-11] MEDS: Insulin Lispro 100 UNIT/ML 10 ML VIAL SC PRN (12:08)
[2024-06-11] MEDS: Ketorolac Tromethamine 30 MG (1 mL) VIAL IVP SCH ×2 (14:02→20:45)
[2024-06-11] MEDS: Metoclopramide HCl 10 MG (2 mL) VIAL IVP SCH ×2 (14:02→20:45)
[2024-06-11] MEDS: diphenhydrAMINE 50 MG/ML VIAL IVP SCH (14:03)
[2024-06-11] MEDS ORDERED: Loratadine 10 MG TAB PO PRN (14:50)
[2024-06-11] MEDS: Sodium Chloride 0.9% 1,000 ML IV SCH (18:52)
[2024-06-11] MEDS: Insulin Glargine 30 UNITS/0.3 ML VIAL SC SCH (20:45)
[2024-06-12 04:48] LABS: #Basophils Less than 0.03 10x3/uL (0.0-0.2); %Basophils 0.2 % (0.0-1.0); %Eosinophils 1.4 % (0.0-10.0); %Lymphocytes 22.5 % (21.0-51.0); %Monocytes 10.6 % (0.0-10.0); %Neutrophils 65.1 % (42.0-75.0); Hematocrit 38.4 % (42.0-52.0); Hemoglobin 13.3 g/dL (14.0-18.0); Mean Corpuscular HGB CONC 34.6 g/dL (32.0-36.0); Mean Corpuscular Hemoglobin 31.8 pg (27.0-31.0); Mean Corpuscular Volume 91.9 fL (78.0-98.0); Mean Platelet Volume 9.5 fL (7.4-10.4); Platelet Count 143 10x3/uL (130-400); RBC Distribution Width 11.7 % (11.5-14.5); Red Blood Cell (RBC) Count 4.18 mill/uL (4.70-6.10)
[2024-06-12 05:05] LABS: ALT (SGPT) 131 U/L (8-55); AST (SGOT) 77 U/L (5-34); Albumin 2.9 g/dL (3.5-5.0); Alkaline Phosphatase 83 U/L (40-110); Anion Gap 12 mmol/L (10-20); BUN (Urea Nitrogen) 13 mg/dL (8.9-20.6); Bilirubin, Total 0.9 mg/dL (0.2-1.2); Calc. Creatinine Clearance 200 mL/min (70-130); Calcium 8.4 mg/dL (7.8-10.44); Carbon Dioxide 23 mmol/L (22-29); Chloride 110 mmol/L (98-107); Estimated GFR 116; Globulin 2.8 g/dL (2.4-3.5); Glucose 114 mg/dL (70-105); Potassium 3.7 mmol/L (3.5-5.1); Protein, Total 5.7 g/dL (6.0-8.3); Sodium 141 mmol/L (136-145)
[2024-06-12 09:18] VITALS: BP 155/92; TEMP 99.2
== END 2024-06-12 12:40 | disposition home or self-care (01) | DRG 392 ==
LOC: ERS 02:32 → ERHOLD 08:58 → 2SW 11:42 → OBSVTOIN 06-11 14:46
PROVIDERS: ADMIT Internal Medicine; ATTEND Family Medicine
DX: A08.4 Viral intestinal infection, unspecified (principal); R78.81 Bacteremia; E87.29 Other acidosis; E11.9 Type 2 diabetes mellitus without complications; E78.5 Hyperlipidemia, unspecified; I10 Essential (primary) hypertension; E86.0 Dehydration; Z90.49 Acquired absence of other specified parts of digestive tract; Z90.5 Acquired absence of kidney
CPT/HCPCS: 36415; 36416; 74177; 80048; 80053; 81001; 82010; 83036; 83605; 83690; 84145; 85025; 87040; 87077; 87149; 87428; 90656; 93005; 96361; 96365; 96375; 96376; J1200; J1644; J1815; J1885; J2272; J2405; J2543; J2765; J7030; Q9967

== ENCOUNTER 2024-08-12 19:52 | Emergency (ER) | payer BC ==
[2024-08-12 20:55] LABS: #Basophils 0.03 10x3/uL (0.0-0.2); %Basophils 0.5 % (0.0-1.0); %Eosinophils 3.1 % (0.0-10.0); %Lymphocytes 51.6 % (21.0-51.0); %Monocytes 11.2 % (0.0-10.0); %Neutrophils 33.4 % (42.0-75.0); Hemoglobin 15.4 g/dL (14.0-18.0); Mean Corpuscular HGB CONC 35.8 g/dL (32.0-36.0); Mean Corpuscular Hemoglobin 32.4 pg (27.0-31.0); Mean Corpuscular Volume 90.3 fL (78.0-98.0); Mean Platelet Volume 9.3 fL (7.4-10.4); Platelet Count 236 10x3/uL (130-400); RBC Distribution Width 11.8 % (11.5-14.5); Red Blood Cell (RBC) Count 4.76 mill/uL (4.70-6.10)
[2024-08-12 21:04] LABS: ALT (SGPT) 51 U/L (8-55); AST (SGOT) 32 U/L (5-34); Albumin 3.9 g/dL (3.5-5.0); Alkaline Phosphatase 115 U/L (40-110); Anion Gap 12 mmol/L (10-20); BUN (Urea Nitrogen) 16 mg/dL (8.9-20.6); Bilirubin, Total 0.7 mg/dL (0.2-1.2); Calc. Creatinine Clearance 0 mL/min (70-130); Calcium 9.5 mg/dL (7.8-10.44); Carbon Dioxide 22 mmol/L (22-29); Chloride 105 mmol/L (98-107); Estimated GFR 110; Globulin 3.5 g/dL (2.4-3.5); Glucose 111 mg/dL (70-105); Lipase 26 U/L (8-78); Potassium 4.4 mmol/L (3.5-5.1); Protein, Total 7.4 g/dL (6.0-8.3); Sodium 135 mmol/L (136-145)
[2024-08-12 21:08] LABS: Troponin I Less than 0.010 ng/mL (< 0.028)
[2024-08-12] MEDS ORDERED: Ketorolac Tromethamine 30 MG (1 mL) VIAL ONE (21:23)
[2024-08-12] MEDS ORDERED: Ondansetron PF 4 MG/2 ML Vial ONE (21:23)
[2024-08-12] MEDS ORDERED: Lidocaine Viscous Sol 2% 15 ml UD Cup ONE (21:39)
[2024-08-12] MEDS ORDERED: Morphine 4 MG/ML VIAL ONE ×2 (21:39→23:08)
[2024-08-12] MEDS ORDERED: Mag-Al 1200 mg/1200 mg/30 ML UDCUP ONE (22:05)
[2024-08-12] MEDS ORDERED: Lidocaine 10 ML, Aluminum & Magnesium Hydroxide 30 ML SSW SCH (22:15)
[2024-08-12 23:09] LABS: Troponin I Less than 0.010 ng/mL (< 0.028)
== END 2024-08-13 00:11 | disposition home or self-care (01) ==
LOC: ERS 19:52
DX: R10.13 Epigastric pain (principal); E11.9 Type 2 diabetes mellitus without complications; I10 Essential (primary) hypertension
CPT/HCPCS: 36415; 71045; 80053; 83605; 83690; 84484; 85025; 93005; 96374; 96375; 96376; J1885; J2272; J2405